=== PATIENT | male | born 1930 | race Caucasian/White ===

== ENCOUNTER 2016-10-05 09:13 | Inpatient (IN) | payer MEDICARE, OTHER ==
[~2016-10-05] VITALS: Ht 177.8 cm; Wt 83.2 kg
[2016-10-05] VITALS (8 sets, daily range): BP systolic 99–115; BP diastolic 57–67
[~2016-10-05 09:13] MED LIST: ADVA115A INH; ATOR40TA PO; CVS20TAB PO; DEXA4TA PO; DIGO0.12 PO; ELIQ2.5T PO; FERR325T PO; FISH100049 PO; FOSI1TAB8 PO; ISOS30TA4 PO; LEVA750T PO; LIDO5TD TD; LUTE10TA PO; METO25TAB PO; METO50TA2 PO; OMEP20CA3 PO; OXYC1TAB23 PO; PERCOCET PO; PLAV75TA38 PO; XANA0.5T PO
[2016-10-05 10:10] LABS: BASO % 0.2 % (0.0-1.0); EOS # 0.1 K/mm3 (0.0-0.50); EOS % 0.6 % (0.0-3.0); LARGE UNSTAINED CELL # 0.1 K/mm3 (0.0-0.4); LARGE UNSTAINED CELL % 0.4 % (0.0-4.0); LYMPH # 0.8 K/mm3 (1.5-4.5); LYMPH % 6.6 % (24.0-44.0); MEAN CORPUSCULAR HEMOGLOBIN 28.7 pg (27.0-33.0); MEAN CORPUSCULAR HGB CONC 31.2 g/dl (32.0-36.5); MONO # 0.2 K/mm3 (0.0-0.8); MONO % 1.3 % (0.0-5.0); NEUTROPHILS # 10.9 K/mm3 (1.8-7.7); NEUTROPHILS % 90.8 % (36.0-66.0); PLATELET COUNT, AUTOMATED 494 k/mm3 (150-450); RED CELL DISTRIBUTION WIDTH 16.2 % (11.5-14.5)
[2016-10-05 10:15] LABS: INR 1.22
[2016-10-05 10:32] LABS: ANION GAP 6 MEQ/L (8-16); BLOOD UREA NITROGEN 35 MG/DL (7-18); CALCIUM LEVEL 10.8 MG/DL (8.8-10.2); CARBON DIOXIDE LEVEL 34 MEQ/L (21-32); CHLORIDE LEVEL 100 MEQ/L (98-107); CREATININE FOR GFR 0.76 MG/DL (0.70-1.30); DIGOXIN LEVEL 0.7 NG/ML (0.5-2.0); GLOMERULAR FILTRATION RATE > 60.0 (>35); GLUCOSE, FASTING 148 MG/DL (83-110); POTASSIUM SERUM 3.8 MEQ/L (3.5-5.1); SODIUM LEVEL 140 MEQ/L (136-145)
[2016-10-05] MEDS ORDERED: ZOFR20TA PO (12:36)
[2016-10-05] MEDS ORDERED: PROC10TA PO (12:36)
[2016-10-05] MEDS ORDERED: HYDR-3713 PO (12:37)
[2016-10-05] MEDS ORDERED: CLON0.5T PO (12:38)
[2016-10-05] MEDS ORDERED: FERR325T PO (12:47)
[2016-10-05] MEDS ORDERED: LIDO5TD TD (12:47)
[2016-10-05] MEDS ORDERED: AMBI5TAB PO (12:48)
[2016-10-05] MEDS ORDERED: OMEP20CA3 PO (12:49)
[2016-10-05] MEDS ORDERED: DEXA5TA PO (12:49)
--- NOTE | 2016-10-05 12:58 | REP ---
LEFT SHOULDER: Three view of the left shoulder are performed. There is no acute fracture or dislocation. There is linear calcification along the superolateral humeral head which appears to represent tendinous calcification with possible calcific tendonitis. IMPRESSION: No acute fracture or dislocation. Possible calcific tendonitis. Signed by Danie Hull MD 10/05/2016 07:39 P
--- NOTE | 2016-10-05 13:24 | REP ---
PELVIS AND LEFT HIP: AP view of the pelvis and AP and frog-leg views of the left hip are performed. There is no evidence of acute fracture or dislocation. There are degenerative changes of the lower lumbar spine. Diffuse vascular calcifications are present. IMPRESSION: No evidence of acute fracture or dislocation. Signed by Danie Hull MD 10/05/2016 07:40 P
--- NOTE | 2016-10-05 13:32 | REP ---
AP SUPINE CHEST: 10/05/2016 COMPARISON: Two-view chest 08/31/2016, CT angiogram chest 09/01/2016. CLINICAL HISTORY: Cough. Supine chest shows lungs hypoinflated compared to the previous study with crowding of markings opacity suggesting complete consolidation and/or mass involving the left upper lobe. I do not see definite haziness to suggest layering effusion but smaller effusions could certainly be present. There is left atrial enlargement with elevation of the left mainstem bronchus. Heart size difficult to night baker in supine AP technique. Some underlying fibrosis is noted in both lungs. The airway is midline. Visualized bones grossly intact. No rita edema. IMPRESSION: 1. Opacity over the left upper lung zone representing consolidation and/or atelectasis and mass within this is certainly possible. 2. Left atrial enlargement. Overall heart size difficult to night baker. 3. Some underlying fibrosis. No rita edema. Signed by Isma Canada MD 10/05/2016 04:45 P
[2016-10-05] MEDS ORDERED: ONDANSETRON 4 MG TAB (S0181) PO PRN (15:15)
[2016-10-05] MEDS ORDERED: zolPIDEM TARTRATE 5 MG TAB PO PRN (15:15)
[2016-10-05] MEDS ORDERED: PROCHLORPERAZINE 5 MG TAB (S0183) PO PRN (15:15)
--- NOTE | 2016-10-05 16:52 | HPE ---
DATE OF ADMISSION: 10/05/2016 PRIMARY CARE PROVIDER: Dr. Bernstein ONCOLOGIST: Dr. 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 The patient was diagnosed with left nonsmall cell lung cancer in July 2016. The patient had a recent hospitalization on 08/21/2016 until 09/01/2016 for atrial fibrillation. Prior to admission, the patient was taking Plavix for GA status post cardiac stent. After the last hospitalization, the patient was placed on Eliquis for his atrial fibrillation. According to the patient, after discharge, he started having intermittent black stool and the patient started having decreased activity level and the patient started having worsening fatigue. The patient had been following with oncologist, Dr. London. The patient was recently started on chemotherapy. For the past week or so, the patient's stool has been persistently black and he noticed that his activity level showed significant decrease to the point that he can barely maintain a stable gait. Early in the morning, the patient tried to get to the bed and he fell and landed on the left hip and left shoulder. The patient denies any bleeding or loss or consciousness. The patient was brought to [facility] for further evaluation. During admission, the patient was found to have anemia with a hemoglobin of 9.6, hematocrit of 30.8, and 0.5 liter IV bolus was given. The hospitalist team was called for admission. ALLERGIES: ASPIRIN (anaphylaxis). HOME MEDICATIONS: - acetaminophen/hydrocodone 5/325 one tablet by mouth every six hours as needed - Eliquis 2.5 mg by mouth twice a day - atorvastatin 40 mg by mouth at bedtime - clonazepam 0.5 mg by mouth twice a day as needed for anxiety - Plavix 75 mg by mouth daily - dexamethasone 0.5 mg by mouth daily - digoxin 0.125 mg by mouth daily - ferrous sulfate 325 mg by mouth daily - Lidoderm patch to the left hip daily - metoprolol tartrate 50 mg by mouth twice a day - omeprazole 20 mg by mouth daily - Zofran 4 mg by mouth every six hours as needed for nausea - prochlorperazine 10 mg by mouth every eight hours as needed for nausea - Advair Diskus two puff inhalation twice a day - Ambien 10 mg by mouth at bedtime as needed for sleep PAST MEDICAL HISTORY: 1. 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 Diagnosed in July 2016. Started first chemotherapy on 10/03/2016. 2. History of myocardial infarction (GA) status post coronary artery stents on Plavix. 3. Gastroesophageal reflux disease. 4. Hypercholesterolemia. 5. Hypertension. 6. Atrial fibrillation. PAST SURGICAL HISTORY: Coronary artery stent placement. SOCIAL HISTORY: The patient used to smoke several packs daily. The patient quite 16 years ago. Denies alcohol use. Denies recreational drug use. The patient is a DO NOT RESUSCITATE (DNR). REVIEW OF SYSTEMS: GENERAL: No fever. No chills. The patient does complain about significant weight loss. The patient has been having very poor oral intake. HEENT: No vision change. No auditory changes. CARDIOVASCULAR: Positive atrial fibrillation since August 2016. The patient has a history of myocardial infarction (GA) 16 years ago. Denies any chest pain. RESPIRATORY: Denies any shortness of breath, cough, or sputum production. GASTROINTESTINAL: History of gastroesophageal reflux disease. No nausea. No vomiting. No abdominal pain. MUSCULOSKELETAL: Hip pain. No muscle ache. NEUROLOGICAL: Denies any new numbness or tingling. OBJECTIVE: VITAL SIGNS: Blood pressure is 105/53, pulse is 90, respiratory rate 18, temperature is 98.3, pulse oximetry is 99% with three liters nasal cannula. Body weight is 85.73 kg. Body height is 77.8 cm. GENERAL: Fatigued, pale but able to answer questions and follow commands. The patient is alert and oriented times three. HEENT: Normocephalic, atraumatic. Extraocular motor grossly intact. CARDIOVASCULAR: Very distant heart sounds. Positive systolic murmur. Irregularly irregular. Heart rate around 90. RESPIRATORY: Decreased breath sounds. However, no wheezes and no crackles appreciated. ABDOMEN: Soft, nontender, nondistended. Bowel sounds present. No rebound. No guarding. EXTREMITIES: No lower extremity edema. No sign of cyanosis. NEUROLOGICAL: Sensation to fine touch grossly intact. Muscle strength 5/5. LABORATORY DATA: WBC is 12, hemoglobin is 9.6, hematocrit 30.8, platelet count is 494. Sodium is 140, potassium is 3.8, chloride is 100, carbon dioxide 34, BUN 35, creatinine 0.76, GFR greater than 60, fasting glucose 148, calcium is 10.8, digoxin level is 0.7, PT is 15.5, INR is 1.22. IMAGING STUDIES: Left shoulder x-ray showed no acute fracture or dislocation. Possible calcified tendonitis. The left hip x-ray showed no evidence of acute fracture or dislocation. Chest x-ray showed opacity over the left upper lung zone representing a consolidation and/or atelectasis and a mass within. Left atrial enlargement. Underlying fibrosis. No rita edema. ASSESSMENT AND PLAN: 1. Upper gastrointestinal (GI) bleed. The patient will be admitted to the progressive care unit (PCU) under inpatient status. The patient will be nothing by mouth and the patient will have IV fluid. General surgeon, Dr. Foss, is consulted. The patient was started on Protonix 40 mg by mouth twice a day and the patient was started on Carafate. The patient has never had upper endoscopy performed and the patient had a colonoscopy more than 10 years ago. We will discontinue the Eliquis and Plavix due to the acute bleeding. 2. Symptomatic anemia. Two units of packed red blood cells was ordered in the emergency room. The patient is actually in the process of receiving first pack of red blood cell transfusion during the encounter. We will followup the hemoglobin and hematocrit every six hours. The patient will be on fall precautions. 3. Stage IV nonsmall cell lung cancer with metastasis to the adrenal gland and the brain. The patient is followed by Dr. London. He just started his first dose of chemotherapy on 10/03/2016. The patient denies any acute reaction to the chemotherapy. The patient and family member understand his prognosis is poor. However, he still wants to have a fighting chance and that is why he is going through the chemotherapy. 4. Hypercholesterolemia, on atorvastatin. 5. History of myocardial infarction (GA) with stent placement. The patient is allergic to aspirin with adverse effect of anaphylaxis. The patient has been taking Plavix. Due to acute GI bleeding, Plavix will be discontinued. 6. Atrial fibrillation. The patient has been taking metoprolol tartrate and Eliquis. Eliquis will be on hold due to the acute bleeding. The patient is also taking digoxin. 7. Hypertension. The patient's blood pressure is currently in the satisfactory range. The patient is on metoprolol tartrate. 8. Deep vein thrombosis (DVT) prophylaxis. Due to acute GI bleeding, the patient will be on thromboembolic-deterrent stockings (TEDS) and sequential compression device.
--- NOTE | 2016-10-05 18:29 | EDDOCDS ---
Physician Documentation [facility] Name: Robert Horton Age: 86 yrs Sex: Male : 1930 Arrival Date: 10/05/2016 Time: 09:13 Bed 21 Private MD: Disposition: 10/05 11:52 Critical Care:. pc Disposition: 10/05/16 13:11 Hospitalization ordered by Deann Gorman for Inpatient Admission. Preliminary diagnosis are Gastrointestinal hemorrhage, unspecified - upper, Anemia, unspecified, Chronic atrial fibrillation, Malignant neoplasm of bronchus and lung, Fall on same level, unspecified. - Bed requested for PCU. - Status is Inpatient Admission. dsf - Condition is Stable. - Problem is new. - Symptoms have improved. HPI: 10:10 This 86 yrs old Male presents to ER via Ambulance with complaints of General pc Weakness. 10:10 The history is obtained from the patient, the patient's family/friend. He has been pc getting progressively weak for 4 weeks, worse since his first chemotherapy 2 days ago. His legs gave out this morning while trying to get to the bathroom to urinate and fell to the floor. He did not sustain any injuries. He was recently admitted to [facility] for new onset AFib and was started on Eliquis. His EMR shows his hemoglobin dropped from 12.5 to 8.5 over the 11 day admission. His BUN was 25 on admission and was 12 on discharge. The patient has not experienced similar symptoms in the past. The patient has been recently seen by Dr. London. Historical: - Allergies: Aspirin (Anaphylaxis); - Home Meds: 1. clonazepam 0.5 mg Oral tab 1 tab 2 times per day (Last dose: 10/04/2016) 2. digoxin 125 mcg Oral tab 1 tab once daily (Last dose: 10/04/2016) 3. Eliquis 5 mg oral tab 1 tab daily (Last dose: 10/04/2016) 4. ondansetron HCl 4 mg Oral tab 4 mg every 6 hours 5. Compazine 10 mg Oral tab 1 tab every 8 hours (Last dose: Unknown) 6. ferrous sulfate 325 mg (65 mg iron) Oral TbEC 325 mg twice a day (Last dose: 10/04/2016) 7. metoprolol tartrate 50 mg Oral tab 2 times per day (Last dose: 10/04/2016) 8. dexamethasone 0.5 mg Oral tab 1 tab once daily (Last dose: 10/04/2016) 9. Ambien 10 mg Oral tab 1 tab nightly (Last dose: 10/04/2016) 10. Plavix 75 mg Oral tab 1 tab once daily (Last dose: 10/04/2016) 11. hydrocodone-acetaminophen 5-325 mg Oral tab 1 tab every 6 hours (Last dose: Unknown) - PMHx: Cancer, Lung - Left; GERD; Hypercholesterolemia; Hypertension; brain cancer; Atrial Fib; - PSHx: Stents, Coronary; - The history from nurses notes was reviewed: and I agree with what is documented. - Social history: Smoking status: Patient states was never smoker of tobacco. No barriers to communication noted, The patient speaks fluent Turkmen. - : The pt / caregiver states he / she is on anticoagulants: Eliquis Home medication list is obtained from family members. - Exposure Risk Screening:: None identified. - Immunization history:: All immunizations up-to-date. - Family history: Not pertinent. - Social history:: the patient is a former smoker, the patient does not drink alcohol. ROS: 10:10 All systems are negative except as listed. pc Exam: 10:10 General Appearance: no acute distress, alert. pc 10:10 EENT: ears, nose and throat normal, pharynx normal, mucous membranes moist no apparent trauma, pale conjunctiva. 10:10 Neck: The exam reveals no acute abnormalities. ROM is normal and painless. No nuchal rigidity is noted.. 10:10 Respiratory: no respiratory distress, Breath sounds: rhonchi, in the right posterior middle lobe. 10:10 CVS: regular pulse rate, normal S1 and S2, no murmurs, strong peripheral pulses, irregularly irregular 10:10 Abdomen: soft, non-tender, no organomegaly, normal bowel sounds, Rectal exam: stool is guaiac positive, fecal impaction is noted. 10:10 Back: normal inspection. 10:10 Skin: warm, dry, the skin appears pale, diffusely. 10:10 Extremities: The extremities have a grossly normal appearance, are non-tender. 10:10 Neuro: oriented x 3, cranial nerves normal as tested, no motor deficits, no sensory deficits. 10:10 Psych: normal mood. Vital Signs: 09:30 BP 115 / 60 (auto/); dsf 09:35 BP 115 / 60; Pulse 88; Resp 18; Temp 98.3; Pulse Ox 100% on 3 lpm NC; Weight 85.73 kg / cmb 189 lbs (R); Height 5 ft. 10 in. (177.80 cm) (R); Pain 0/10; 09:35 Pulse 94 MON; Pulse Ox 100% ; dsf 11:52 BP 105 / 53 (auto/); dsf 11:52 Pulse 90 MON; Pulse Ox 99% ; dsf 12:31 BP 110 / 59; Pulse 109; Resp 18; Temp 98.2; Pulse Ox 98% on 3 lpm NC; Pain 0/10; cmb 09:35 Body Mass Index 27.12 (85.73 kg, 177.80 cm) cmb MDM: 10:01 IV Saline Lock ordered. pc 10:01 Duplicate Maker/Pulse Ox/q 30 min VS ordered. pc 10:02 Type & Screen Ordered. EDMS 10:02 ECG WITH READING ER PHYS+CARDIAG ordered. EDMS 10:02 CBC with Diff Ordered. EDMS 10:02 MED Profile Ordered. EDMS 10:02 Pt & Aptt Ordered. EDMS 10:02 Digoxin Level Ordered. EDMS 10:03 NOTHING BY MOUTH+DIET ordered. EDMS 10:10 Differential Diagnosis: fall without injury; general weakness with profound anemia; UGI pc bleed on anticoagulants; lung Ca. Plan: labs, EKG. 10:15 Test interpretation: EKG. pc 10:49 CBC with Diff Reviewed. pc 10:49 MED Profile Reviewed. pc 10:49 Pt & Aptt Reviewed. pc 10:49 Type & Screen Reviewed. pc 10:49 Digoxin Level Reviewed. pc 11:21 Type & Screen Reviewed. pc 11:37 BED REQUEST+ADM ordered. EDMS 11:50 NS 0.9% 500 ml IV at bolus once ordered. pc 11:51 Transfuse PRBC's 2 units, ensure PRBCs ordered in lab ordered. pc 11:52 Data reviewed: old medical records, vital signs, nurses notes, EKG(s), lab test pc results, all radiology studies and available results. Test interpretation: LAB - all labs as ordered have been reviewed, interpreted and considered in the overall management of the clinical presentation;. The patient has been re-examined and re-evaluated. The patient's symptoms have mildly improved after treatment. ED course: He is now complaining of left shoulder and hip[ pain from his fall. Exam is unremarkable . 11:52 Physician consultation: Dr. Deann Gorman regarding admission. Disposition: The historical pc points, examination findings, and any diagnostic results supporting the provided diagnosis, were discussed with the patient or legal guardian. The need for further work-up and/or treatment in the hospital was explained. 11:53 Chest, 1 View Ordered. EDMS 11:53 Shoulder, Complete Ordered. EDMS 11:53 Type and Cross, Packed Cells Ordered. EDMS 11:54 Hip,AP,LAT to include Pelvis Ordered. EDMS 12:30 Admission / Observation Status ordered. EDMS 12:30 NPO DIET ordered. EDMS 13:08 Financial registration complete. mm15 14:18 [facility] Payment Agreement was scanned into [employer] and attached to record. mm15 15:05 HEMOGLOBIN & HEMATOCRIT Ordered. EDMS EC:15 Rate is 94 beats/min. Rhythm is irregularly irregular, A fib. QRS Booker is Normal. QRS pc interval is normal. QT interval is normal. Q waves are Old in leads III, aVF. T waves are Inverted in lead aVF. ST Segment is depressed in leads II, aVL, aVF, V3, <1mm. Clinical impression: Nonspecific ST-T changes, Atrial Fibrillation w/o RVR, and Inferior SC - age indeterminate. Administered Medications: 11:53 Drug: NS 0.9% 500 ml [sodium chloride 0.9 % injection solution] Route: IV; Rate: bolus; dsf Site: right antecubital; Critical Care Time: 11:52 Critical care time: Bedside Care: 35 minutes, Consultation: 10 minutes, Family pc Intervention: 15 minutes. Total time: 60 minutes Signatures: Dispatcher [employer] EDDE Kervin Grewal MD MD pc Fuller, Desiree, RN RN dsf Jim Manjarrez [id number] Yang De La Garza RN RN [facility] The chart was reviewed and I authenticate all verbal orders and agree with the evaluation and treatment provided.Corrections: (The following items were deleted from the chart) 12:07 11:53 TYPE & SCREEN ordered. EDMS EDMS 16:01 15:35 PACKED CELLS ordered. EDMS EDMS 16:01 15:35 TYPE & SCREEN ordered. EDMS EDMS Attachments: 14:18 [facility] Payment Agreement [id number] MTDD
--- NOTE | 2016-10-05 18:29 | EDDOCDS ---
Nurse's Notes [facility] Name: Robert Horton Age: 86 yrs Sex: Male : 1930 Arrival Date: 10/05/2016 Time: 09:13 Bed 21 Private MD: Diagnosis: Gastrointestinal hemorrhage, unspecified-upper;Anemia, unspecified;Chronic atrial fibrillation;Malignant neoplasm of bronchus and lung;Fall on same level, unspecified Presentation: 10/05 09:16 Presenting complaint: Presenting complaint: EMS states: pt reports his legs were weak dsf when trying to get out of bed this morning and he fell. pt denies LOC. pt has a HX of brain cancer and did receive chemo on Monday, FSBS 187. PT denies pain at this time. 09:19 Suicide/Homicide risk assessment- the patient denies having any suicidal and/or dsf homicidal ideations and does not present with any other emotional, behavioral or mental health complaints. 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 Transition of care: patient was not received from another setting of care. 09:19 Method Of Arrival: Ambulance dsf 09:37 Adult Sepsis Screening: The patient does not have new or worsening altered mentation. dsf Patient's respiratory rate is less than 22. Systolic blood pressure is greater than 100. Patient has a qSOFA score of 0- Negative Sepsis Screen. 09:37 Acuity: JOSE Level 3 dsf Triage Assessment: 09:23 General: Appears ill, Behavior is cooperative. Pain: Denies pain. The patient is dsf triaged at the bedside. See Assessment in Nurses Notes section of ED record. Neurological: Level of Consciousness is awake, alert, Oriented to person, place, time, Reports weakness legs feel weak for the past 1-2 weeks . Cardiovascular: Capillary refill < 3 seconds Heart tones S1 S2 present. Respiratory: Airway is patent Respiratory effort is even, unlabored, Respiratory pattern is regular, symmetrical, Breath sounds are diminished in left upper lobe and left lower lobe Reports shortness of breath since for the past week cough that is productive, since 1 week ago. GI: Abdomen is non- distended Bowel sounds present X 4 quads. Abd is soft and non tender X 4 quads. Derm: Skin is dry, Skin is pale. Musculoskeletal: No deficits noted. Historical: - Allergies: Aspirin (Anaphylaxis); - Home Meds: 1. clonazepam 0.5 mg Oral tab 1 tab 2 times per day (Last dose: 10/04/2016) 2. digoxin 125 mcg Oral tab 1 tab once daily (Last dose: 10/04/2016) 3. Eliquis 5 mg oral tab 1 tab daily (Last dose: 10/04/2016) 4. ondansetron HCl 4 mg Oral tab 4 mg every 6 hours 5. Compazine 10 mg Oral tab 1 tab every 8 hours (Last dose: Unknown) 6. ferrous sulfate 325 mg (65 mg iron) Oral TbEC 325 mg twice a day (Last dose: 10/04/2016) 7. metoprolol tartrate 50 mg Oral tab 2 times per day (Last dose: 10/04/2016) 8. dexamethasone 0.5 mg Oral tab 1 tab once daily (Last dose: 10/04/2016) 9. Ambien 10 mg Oral tab 1 tab nightly (Last dose: 10/04/2016) 10. Plavix 75 mg Oral tab 1 tab once daily (Last dose: 10/04/2016) 11. hydrocodone-acetaminophen 5-325 mg Oral tab 1 tab every 6 hours (Last dose: Unknown) - PMHx: Cancer, Lung - Left; GERD; Hypercholesterolemia; Hypertension; brain cancer; Atrial Fib; - PSHx: Stents, Coronary; - The history from nurses notes was reviewed: and I agree with what is documented. - Social history: Smoking status: Patient states was never smoker of tobacco. No barriers to communication noted, The patient speaks fluent Macedonian. - : The pt / caregiver states he / she is on anticoagulants: Eliquis Home medication list is obtained from family members. - Exposure Risk Screening:: None identified. - Immunization history:: All immunizations up-to-date. - Family history: Not pertinent. - Social history:: the patient is a former smoker, the patient does not drink alcohol. Assessment: 09:23 General: see triage assessment . dsf 10:23 Adult Sepsis Screening: The patient does not have new or worsening altered mentation. dsf Patient's respiratory rate is less than 22. Systolic blood pressure is greater than 100. Patient has a qSOFA score of 0- Negative Sepsis Screen. General: Appears in no apparent distress, Behavior is appropriate for age, cooperative. Pain: Denies pain. Neurological: Level of Consciousness is awake, alert. Cardiovascular: Capillary refill < 3 seconds Heart tones S1 S2 present Rhythm is atrial fibrillation with no ectopy. Respiratory: Airway is patent Respiratory effort is even, unlabored, Respiratory pattern is regular, symmetrical, Breath sounds are diminished in left upper lobe and left lower lobe. Derm: Skin is dry, Skin is pale, Skin temperature is warm. 11:23 Adult Sepsis Screening: The patient does not have new or worsening altered mentation. dsf Patient's respiratory rate is less than 22. Systolic blood pressure is greater than 100. Patient has a qSOFA score of 0- Negative Sepsis Screen. General: Appears in no apparent distress, to be sleeping. Respiratory: Airway is patent Respiratory effort is even, unlabored, Respiratory pattern is regular, symmetrical. Derm: Skin is dry, Skin is pale, Skin temperature is warm. 12:34 General: Dr. gorman in examining patient . dsf 13:34 General: Appears in no apparent distress, to be sleeping. Cardiovascular: Capillary dsf refill < 3 seconds Heart tones S1 S2 present Rhythm is atrial fibrillation with no ectopy. Respiratory: Airway is patent Respiratory effort is even, unlabored, Respiratory pattern is regular, symmetrical, Breath sounds are diminished in left upper lobe and left lower lobe. GI: Abdomen is non- distended Bowel sounds present X 4 quads. Abd is soft and non tender X 4 quads. Derm: Skin is dry, Skin is pale, Skin temperature is warm. 13:50 General: Dr. Foss in examining patient . dsf Vital Signs: 09:30 BP 115 / 60 (auto/); dsf 09:35 BP 115 / 60; Pulse 88; Resp 18; Temp 98.3; Pulse Ox 100% on 3 lpm NC; Weight 85.73 kg cmb (R); Height 5 ft. 10 in. (177.80 cm) (R); Pain 0/10; 09:35 Pulse 94 MON; Pulse Ox 100% ; dsf 11:52 BP 105 / 53 (auto/); dsf 11:52 Pulse 90 MON; Pulse Ox 99% ; dsf 12:31 BP 110 / 59; Pulse 109; Resp 18; Temp 98.2; Pulse Ox 98% on 3 lpm NC; Pain 0/10; cmb 09:35 Body Mass Index 27.12 (85.73 kg, 177.80 cm) cmb Vitals: 09:23 Log In Time N/A - ambulance arrival. dsf ED Course: 09:15 Patient visited by Evonne Russ. cmb 09:15 Patient moved to Waiting cmb 09:16 Patient moved to 15 cmb 09:27 Kervin Grewal MD is Attending Physician. pc 09:36 Patient visited by Evonne Russ. cmb 09:36 Pt greeted and oriented to ED. Patient advised of names of staff involved in care, cmb location of call raza, wait times and NPO status. Patient has correct armband on for positive identification. Bed in low position. Call light in reach. Side rails up X2. Cleaned of incontinence. nurse receptionist on. Pulse ox on. NIBP on. 09:37 Triage Initiated dsf 09:57 Patient visited by Kervin Grewal MD. pc 10:02 Inserted saline lock: 20 gauge in right antecubital area The patient tolerated the dsf procedure well. 10:04 Digoxin Level Sent. dsf 10:04 Type & Screen Sent. dsf 10:04 Pt & Aptt Sent. dsf 10:04 MED Profile Sent. dsf 10:04 CBC with Diff Sent. dsf 10:08 EKG done. (by ED staff). Reviewed by Kervin Grewal MD. nb2 10:15 Patient visited by Mariah Dewey. nb2 11:16 Patient visited by Evonne Russ. cmb 11:54 Type and Cross, Packed Cells Sent. dsf 11:55 Patient visited by Gabby Tamez,MAHOGANY. dsf 12:03 Deann Gorman communications strategist. ys2 12:10 Patient moved to Radiology dsf 12:31 Patient visited by Evonne Russ. cmb 12:31 Patient moved to 15 cmb 12:32 Patient visited by Evonne Russ. cmb 12:59 Blood products: PRBCs X 1 unit given. See transfusion record Unit # [id number]. jc4 13:10 Deann Gorman is Hospitalizing Provider. pc 13:21 Shoulder, Complete Returned. EDMS 13:52 Patient visited by Gabby Tamez,MAHOGANY. dsf 14:10 Patient moved to 21 dsf 14:18 [facility] [place] Agreement was scanned into [employer] and attached to record. mm15 14:18 Hip,AP,LAT to include Pelvis Returned. EDMS 14:18 Chest, 1 View Returned. EDMS 14:19 Patient visited by Evonne Russ. cmb Administered Medications: 11:53 Drug: NS 0.9% 500 ml [sodium chloride 0.9 % injection solution] Route: IV; Rate: bolus; dsf Site: right antecubital; Order Results: Lab Order: CBC with Diff; SPEC'M 10/05/16 09:43 Test: WHITE BLOOD COUNT; Value: 12.0; Range: 4.0-10.0; Abnormal: Above high normal; Units: K/mm3; Status: F Test: RED BLOOD COUNT; Value: 3.35; Range: 4.30-6.10; Abnormal: Below low normal; Units: M/mm3; Status: F Test: HEMOGLOBIN; Value: 9.6; Range: 14.0-18.0; Abnormal: Below low normal; Units: g/dl; Status: F Test: HEMATOCRIT; Value: 30.8; Range: 42.0-52.0; Abnormal: Below low normal; Units: %; Status: F Test: MEAN CORPUSCULAR VOLUME; Value: 92.0; Range: 80.0-96.0; Units: fl; Status: F Test: MEAN CORPUSCULAR HEMOGLOBIN; Value: 28.7; Range: 27.0-33.0; Units: pg; Status: F Test: MEAN CORPUSCULAR HGB CONC; Value: 31.2; Range: 32.0-36.5; Abnormal: Below low normal; Units: g/dl; Status: F Test: RED CELL DISTRIBUTION WIDTH; Value: 16.2; Range: 11.5-14.5; Abnormal: Above high normal; Units: %; Status: F Test: PLATELET COUNT, AUTOMATED; Value: 494; Range: 150-450; Abnormal: Above high normal; Units: k/mm3; Status: F Test: NEUTROPHILS %; Value: 90.8; Range: 36.0-66.0; Abnormal: Above high normal; Units: %; Status: F Test: LYMPH %; Value: 6.6; Range: 24.0-44.0; Abnormal: Below low normal; Units: %; Status: F Test: MONO %; Value: 1.3; Range: 0.0-5.0; Units: %; Status: F Test: EOS %; Value: 0.6; Range: 0.0-3.0; Units: %; Status: F Test: BASO %; Value: 0.2; Range: 0.0-1.0; Units: %; Status: F Test: LARGE UNSTAINED CELL %; Value: 0.4; Range: 0.0-4.0; Units: %; Status: F Test: NEUTROPHILS #; Value: 10.9; Range: 1.8-7.7; Abnormal: Above high normal; Units: K/mm3; Status: F Test: LYMPH #; Value: 0.8; Range: 1.5-4.5; Abnormal: Below low normal; Units: K/mm3; Status: F Test: MONO #; Value: 0.2; Range: 0.0-0.8; Units: K/mm3; Status: F Test: EOS #; Value: 0.1; Range: 0.0-0.50; Units: K/mm3; Status: F Test: BASO #; Value: 0.0; Range: 0.0-0.2; Units: K/mm3; Status: F Test: LARGE UNSTAINED CELL #; Value: 0.1; Range: 0.0-0.4; Units: K/mm3; Status: F Lab Order: [facility] Profile; [facility] 10/05/16 09:43 Test: GLUCOSE, FASTING; Value: 148; Range: 83-110; Abnormal: Above high normal; Units: MG/DL; Status: F Test: BLOOD UREA NITROGEN; Value: 35; Range: 7-18; Abnormal: Above high normal; Units: MG/DL; Status: F Test: CREATININE FOR GFR; Value: 0.76; Range: 0.70-1.30; Units: MG/DL; Status: F Test: GLOMERULAR FILTRATION RATE; Value: > 60.0; Range: >35; Status: F Test: SODIUM LEVEL; Value: 140; Range: 136-145; Units: MEQ/L; Status: F Test: POTASSIUM SERUM; Value: 3.8; Range: 3.5-5.1; Units: MEQ/L; Status: F Test: CHLORIDE LEVEL; Value: 100; Range: 98-107; Units: MEQ/L; Status: F Test: CARBON DIOXIDE LEVEL; Value: 34; Range: 21-32; Abnormal: Above high normal; Units: MEQ/L; Status: F Test: ANION GAP; Value: 6; Range: 8-16; Abnormal: Below low normal; Units: MEQ/L; Status: F Test: CALCIUM LEVEL; Value: 10.8; Range: 8.8-10.2; Abnormal: Above high normal; Units: MG/DL; Status: F Test Note: ; Units are mL/min/1.73 m2 Chronic Kidney Disease Staging per NKF: Stage I & II GFR >=60 Normal to Mildly Decreased Stage III GFR 30-59 Moderately Decreased Stage IV GFR 15-29 Severely Decreased Stage V GFR <15 Very Little GFR Left ESRD GFR <15 on TAR CHASER Lab Order: Pt & Aptt; 10/05/16 09:43 Test: PROTHROMBIN TIME; Value: 15.5; Range: 12.3-14.5; Abnormal: Above high normal; Units: SECONDS; Status: F Test: INR; Value: 1.22; Status: F Test: PARTIAL THROMBOPLASTIN TIME; Value: 31.5; Range: 26.6-37.1; Units: SECONDS; Status: F Test Note: ; THERAPUTIC HUMAN INR VALUES INDICATIONS NORMAL RANGES PROPHYLAXIS/TREATMENT OF: VENOUS THROMBOSIS 2.0-3.0 PULMONARY EMBOLISM 2.0-3.0 PREVENTION OF SYSTEMIC EMBOLISM FROM: TISSUE HEART VALVES 2.0-3.0 ACUTE MYOCARDIAL INFARCTION 2.0-3.0 VALVULAR HEART DISEASE 2.0-3.0 ATRIAL FIBRILLATION 2.0-3.0 MECHANICAL VALVES(HIGH RISK) 2.5-3.5 RECURRENT MYOCARDIAL INFARCTION 2.5-3.5 Lab Order: Type & Screen; 10/05/16 09:43 Test: BLOOD TYPE; Value: O POS; Status: F Test: AB SCREEN (INDIRECT ANTHONY)GEL; Value: NEGATIVE; Status: F Lab Order: Digoxin Level; 10/05/16 09:43 Test: DIGOXIN LEVEL; Value: 0.7; Range: 0.5-2.0; Units: NG/ML; Status: F Radiology Order: Chest, 1 View Test: Chest, 1 View REASON FOR EXAMINATION: Cough; AP SUPINE CHEST: 10/05/2016; ; COMPARISON: Two-view chest 08/31/2016, CT angiogram chest 09/01/2016.; ; CLINICAL HISTORY: Cough.; ; Supine chest shows lungs hypoinflated compared to the previous study with; crowding of markings opacity suggesting complete consolidation and/or mass; involving the left upper lobe. I do not see definite haziness to suggest; layering effusion but smaller effusions could certainly be present. There is; left atrial enlargement with elevation of the left mainstem bronchus. Heart size; difficult to airborne and air delivery specialist in supine AP technique. Some underlying fibrosis is noted in; both lungs. The airway is midline. Visualized bones grossly intact. No rita; edema.; ; IMPRESSION:; ; 1. Opacity over the left upper lung zone representing consolidation and/or; atelectasis and mass within this is certainly possible.; ; 2. Left atrial enlargement. Overall heart size difficult to airborne and air delivery specialist.; ; 3. Some underlying fibrosis. No rita edema.; ; ; Signed by; Isma Canada MD 10/05/2016 04:45 P; Radiology Order: Shoulder, Complete Test: Shoulder, Complete REASON FOR EXAMINATION: Trauma; ; LEFT SHOULDER:; ; Three view of the left shoulder are performed. There is no acute fracture or; dislocation. There is linear calcification along the superolateral humeral head; which appears to represent tendinous calcification with possible calcific; tendonitis.; ; IMPRESSION:; No acute fracture or dislocation. Possible calcific tendonitis.; ; ; ; Unreviewed; Radiology Order: Hip,AP,LAT to include Pelvis Test: Hip,AP,LAT to include Pelvis REASON FOR EXAMINATION: Trauma; ; PELVIS AND LEFT HIP:; ; AP view of the pelvis and AP and frog-leg views of the left hip are performed.; There is no evidence of acute fracture or dislocation. There are degenerative; changes of the lower lumbar spine. Diffuse vascular calcifications are present.; ; ; IMPRESSION:; No evidence of acute fracture or dislocation.; ; ; ; Unreviewed; Outcome: 13:11 Decision to Hospitalize by Provider. pc 14:10 Admission hand-off: Report called to Mira VIDES. dsf 18:28 Patient left the ED. dsf Signatures: Dispatcher [employer] EDMS Kervin Grewal MD MD pc Castle, Jennifer RN RN jc4 Gabby Tmaez RN RN dsEvonne Raymond cmb Jim Manjarrez mm15 Deann Gorman ys2 Mariah Dewey nb2 Corrections: (The following items were deleted from the chart) 09: 09:16 Presenting complaint: dsf dsf 09:28 09:16 Presenting complaint: EMS states: pt reports his legs were weak when trying to dsf get out of bed this morning and he fell. pt denies LOC. pt has a HX of brain cancer and did receive chemo on Monday, FSBS 187. PT denies pain at this time Presenting complaint: EMS states: pt reports his legs were weak when trying to get out of bed this morning and he fell. pt denies LOC. pt has a HX of brain cancer and did receive chemo on Monday, FSBS 187. PT denies pain at this time dsf 13:52 10:23 Cardiovascular: Capillary refill < 3 seconds dsf dsf 13:52 10:23 Respiratory: Airway is patent Respiratory effort is even, unlabored, Respiratory dsf pattern is regular, symmetrical, dsf MTDD
[2016-10-05] MEDS: NS 1,000 ML IV SCH (19:39)
[2016-10-05] MEDS: DIGOXIN 0.125 MG TAB PO SCH (19:39)
[2016-10-05] MEDS: FERROUS SULFATE 325MG TAB PO SCH (19:40)
[2016-10-05] MEDS: LIDOCAINE 5% (LIDODERM) PATCH TD SCH (19:42)
[2016-10-05] MEDS: **NOTE PATIENT COMMENT** MISC XX SCH (20:38)
[2016-10-05] MEDS: ATORVASTATIN 20 MG TAB PO SCH (20:45)
[2016-10-05] MEDS: SUCRALFATE SUSP 1GM/10ML UD PO SCH (20:45)
[2016-10-05] MEDS: PANTOPRAZOLE 40MG TAB (PROTONIX) PO SCH (20:45)
[2016-10-05] MEDS: OMEPRAZOLE 20 MG CAP PO SCH (20:45)
[2016-10-05] MEDS: METOPROLOL TART 50 MG TAB PO SCH (20:46)
[2016-10-05] MEDS: ADVAIR HFA 115/21 INHALER INH SCH (21:35)
[2016-10-05] MEDS: clonazePAM 0.5 MG TAB PO PRN (23:33)
[2016-10-06] MEDS: NS 1,000 ML IV SCH ×3 (00:55→22:36)
[2016-10-06 03:23] VITALS: BP 115/58
[2016-10-06] MEDS: SUCRALFATE SUSP 1GM/10ML UD PO SCH ×3 (04:31→22:33)
[2016-10-06 05:59] LABS: ANION GAP 6 MEQ/L (8-16); BLOOD UREA NITROGEN 30 MG/DL (7-18); CALCIUM LEVEL 9.7 MG/DL (8.8-10.2); CARBON DIOXIDE LEVEL 33 MEQ/L (21-32); CHLORIDE LEVEL 102 MEQ/L (98-107); CREATININE FOR GFR 0.53 MG/DL (0.70-1.30); GLOMERULAR FILTRATION RATE > 60.0 (>35); GLUCOSE, FASTING 132 MG/DL (83-110); POTASSIUM SERUM 3.5 MEQ/L (3.5-5.1); SODIUM LEVEL 141 MEQ/L (136-145)
[2016-10-06 06:00] LABS: MEAN CORPUSCULAR HEMOGLOBIN 28.9 pg (27.0-33.0); MEAN CORPUSCULAR HGB CONC 31.5 g/dl (32.0-36.5); MEAN CORPUSCULAR VOLUME 91.8 fl (80.0-96.0); RED CELL DISTRIBUTION WIDTH 15.8 % (11.5-14.5); WHITE BLOOD COUNT 12.2 K/mm3 (4.0-10.0)
--- NOTE | 2016-10-06 07:13 | CR ---
DATE OF CONSULTATION: 10/05/2016 REASON FOR CONSULT: Gastrointestinal (GI) bleed. HISTORY OF PRESENT ILLNESS: The patient is an 86-year-old male with a history of Stage IV lung cancer. He was recently diagnosed due to metastases to the brain. He has undergone radiation to the brain mets and also started chemotherapy this past Monday for the left lung. For the past two weeks, he has had black stools and he has been getting progressively weaker. Since Monday, this has been getting even worse to the point where he was having trouble standing and moving. Therefore, he was brought into the emergency room today. No signs of visible bleeding, however, he does have the black stools. He is on Eliquis at home and Plavix. He is on omeprazole for GI prophylaxis at home. Last colonoscopy was well over ten years ago. No history of bright red blood in his stools. No problems with melanotic stools prior to two weeks ago. The patient is not very verbal at this point. He is alert and oriented times three, but he is very quiet and weak, so the son and son-in-law did most of the talking for him. However, they say that there is no known prognosis for him at this time. He has not been given anything like that from his oncologist. Other than being weak and having the black stools, there is no other complaints at home. PAST MEDICAL HISTORY: 1. Osteoarthritis. 2. Anemia. 3. 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 4. Coronary artery disease. 5. Peripheral vascular disease. 6. Gastroesophageal reflux disease. 7. Hypertension. 8. Dyslipidemia. PAST SURGICAL HISTORY: Stents, both coronary and femoral stents. ALLERGIES: ASPIRIN. HOME MEDICATIONS: - metoprolol - fosinopril - atorvastatin - isosorbide mononitrate - Plavix - omeprazole - Eliquis FAMILY HISTORY: Noncontributory. REVIEW OF SYSTEMS: Pertinent positives and negatives as stated in history of present illness. SOCIAL HISTORY: Denies any drug, alcohol or tobacco abuse. PHYSICAL EXAMINATION: GENERAL: Patient is alert and oriented times three. VITAL SIGNS: Stable. Afebrile. HEENT: Pupils equally round and react to light and accommodation. HEART: S1, S2. Regular rate and rhythm. LUNGS: Clear to auscultation bilaterally. ABDOMEN: Soft. Nontender. Nondistended. Bowel sounds positive. EXTREMITIES: No clubbing, cyanosis or edema. LABS: White count 12, hemoglobin 9.6, platelets 494. Sodium 140, potassium 3.8, creatinine 0.76. IMAGING: Chest x-ray shows opacity over the left upper lung zone representing consolidation and/or atelectasis and mass. Left atrial enlargement. Some underlying fibrosis. No signs of rita edema. ASSESSMENT AND PLAN: Patient is an 86-year-old male currently with Stage IV lung cancer with poor overall prognosis who had melanotic stools for the past two weeks. This is acute blood loss anemia from GI source. This is likely secondary to an upper rather than a lower GI bleed. I discussed with the family that this is most likely from gastritis, duodenitis, gastric ulcer, duodenal ulcer or possibly even metastatic lesions inside of the stomach or esophagus that are slowly bleeding on their own. There is no plan for upper endoscopy at this time. The patient is DO NOT RESUSCITATE/DO NOT INTUBATE (DNR/DNI) at home. They would like me to do everything possible at this point while he is in the hospital; however, I said that I would talk to them before anything gets planned. At this point, will treat him empirically with Carafate and Prilosec twice a day as well as give him two units of blood due to the weakness. We will continue to monitor his hemoglobin and hematocrit every 6 hours. If he does not improve over the next 24-48 hours or if he requires more than 4 units of blood, then we will consider to start off with an upper endoscopy to figure out the source of his bleeding.
[2016-10-06] MEDS: ADVAIR HFA 115/21 INHALER INH SCH ×2 (07:19→20:01)
[2016-10-06 08:00] VITALS: BP 108/55
[2016-10-06] MEDS: PANTOPRAZOLE 40MG TAB (PROTONIX) PO SCH ×2 (09:14→22:33)
[2016-10-06] MEDS: FERROUS SULFATE 325MG TAB PO SCH (09:14)
[2016-10-06] MEDS: LIDOCAINE 5% (LIDODERM) PATCH TD SCH (09:14)
[2016-10-06] MEDS: OMEPRAZOLE 20 MG CAP PO SCH (09:15)
[2016-10-06] MEDS: METOPROLOL TART 50 MG TAB PO SCH ×2 (09:15→22:33)
[2016-10-06] MEDS: DIGOXIN 0.125 MG TAB PO SCH (09:15)
[2016-10-06 11:30] VITALS: BP 115/68
[2016-10-06 16:00] VITALS: BP 110/62
[2016-10-06 20:00] VITALS: BP 103/64
[2016-10-06] MEDS: **NOTE PATIENT COMMENT** MISC XX SCH (21:00)
--- NOTE | 2016-10-06 21:39 | IPN ---
DATE: 10/06/2016 SUBJECTIVE: Patient seen and examined in the room today. Patient continues to have black, tarry stool. Patient does not feel his bleeding is decreased. No overnight events reported. OBJECTIVE: VITAL SIGNS: Temperature is 96.8, pulse is 99, respiration rate 18, blood pressure is 108/55, pulse oximetry 97% with 3 liters nasal cannula. GENERAL: Fatigued, pale. No sign of acute distress. Patient is alert and oriented times three. HEENT: Normocephalic, atraumatic. Extraocular motor grossly intact. CARDIOVASCULAR: Irregularly irregular, very distant heart sounds. Positive systolic murmur. RESPIRATORY: No wheezes or rhonchi. Very distant breath sounds. ABDOMEN: Soft, nontender, nondistended. Bowel sounds present. EXTREMITIES: No edema. No cyanosis. LABORATORY DATA: WBC 12.2, hemoglobin is 10.4, hematocrit 33, platelet count is 401. Sodium 141, potassium 3.5, chloride 102, carbon dioxide 33, BUN is 30, creatinine 0.53, GFR greater than 60, fasting glucose 132, calcium 9.7. ASSESSMENT AND PLAN: 1. Gastrointestinal (GI) bleed, most likely upper GI source. The general surgeon, Dr. Foss. It is suspected patient might have a GI bleed from gastritis versus duodenitis versus peptic ulcer disease. Recommend medical management. Continue with Protonix and Carafate. Due to other medical comorbidities, recommend to avoid a procedure unless there is a significant drop in hemoglobin and hematocrit. Patient is advanced to a clear diet. Due to current GI bleed, patient's Eliquis and Plavix are on hold. 2. Stage IV you-[id number]-kvex lung cancer with metastasis to the brain, adrenal gland, and surrounding lymph nodes. Patient had his first session of chemotherapy on 10/03/2016. Patient is followed by Dr. London in the outpatient setting. 3. Symptomatic anemia in the setting of acute GI bleed. Patient had a 2 packed red blood cells transfusion previously. Patient is being evaluated by physical therapy. 4. Hyperlipidemia, on atorvastatin. 5. History of myocardial infarction with stent placement. Patient had allergy to aspirin; therefore, patient was taking Plavix previously during current GI bleed. Plavix will be discontinued. 6. Atrial fibrillation. Continue metoprolol tartrate; heart rate within the satisfactory range. Eliquis was discontinued due to the GI bleed. Patient is also taking digoxin. 7. Hypertension. Patient is returning to satisfactory range. Patient is on metoprolol tartrate. 8. Deep vein thrombosis (DVT) prophylaxis, on thromboembolic deterrents (TEDs), and sequential compression device. No anticoagulation will be given due to the GI bleed.
[2016-10-06] MEDS: ATORVASTATIN 20 MG TAB PO SCH (22:33)
[2016-10-06 23:53] VITALS: BP 97/53
[2016-10-07] MEDS ORDERED: SODIUM CHLORIDE NASAL 0.65% SPRAY BTL (OCEAN) PRN (00:45)
[2016-10-07 04:00] VITALS: BP 103/58
[2016-10-07] MEDS: SUCRALFATE SUSP 1GM/10ML UD PO SCH ×3 (04:20→20:28)
[2016-10-07 06:02] LABS: MEAN CORPUSCULAR HEMOGLOBIN 29.3 pg (27.0-33.0); MEAN CORPUSCULAR HGB CONC 31.6 g/dl (32.0-36.5); MEAN CORPUSCULAR VOLUME 92.5 fl (80.0-96.0); WHITE BLOOD COUNT 8.9 K/mm3 (4.0-10.0)
[2016-10-07 06:22] LABS: ANION GAP 8 MEQ/L (8-16); BLOOD UREA NITROGEN 27 MG/DL (7-18); CALCIUM LEVEL 9.5 MG/DL (8.8-10.2); CARBON DIOXIDE LEVEL 31 MEQ/L (21-32); CHLORIDE LEVEL 104 MEQ/L (98-107); CREATININE FOR GFR 0.48 MG/DL (0.70-1.30); GLOMERULAR FILTRATION RATE > 60.0 (>35); GLUCOSE, FASTING 123 MG/DL (83-110); POTASSIUM SERUM 3.2 MEQ/L (3.5-5.1); SODIUM LEVEL 143 MEQ/L (136-145)
[2016-10-07] MEDS: ADVAIR HFA 115/21 INHALER INH SCH ×2 (07:23→20:51)
[2016-10-07 08:00] VITALS: BP 106/58
--- NOTE | 2016-10-07 08:54 | ECGEPIP ---
Stationary ECG Study [facility] - ED Test Date: 2016-10-05 Pat Name: CHRIS DAVIS Department: Room: - Gender: M Electrical Project Manager: trudy : 1930 Requested By: Kervin Marquez Order Number: [id number] Reading MD: Luiza Jimenez Measurements Intervals [place] Rate: 92 P: [place]: 0 QRS: 20 QRSD: 90 T: -44 QT: 309 QTc: 382 Interpretive Statements ATRIAL FIBRILLATION INFERIOR MYOCARDIAL INFARCTION, OF INDETERMINATE AGE WITH POSTERIOR EXTENSION MODERATE T-WAVE ABNORMALITY, CONSIDER ANTEROLATERAL ISCHEMIA DECREASED RATE 09/01/16 Electronically Signed On 10-07-2016 8:53:41 EST by Luiza Jimenez
[2016-10-07] MEDS ORDERED: POTASSIUM CHLORIDE 10 MEQ SR TABLET PO ONE (09:00)
[2016-10-07] MEDS: OMEPRAZOLE 20 MG CAP PO SCH (09:51)
[2016-10-07] MEDS: PANTOPRAZOLE 40MG TAB (PROTONIX) PO SCH ×2 (09:51→20:29)
[2016-10-07] MEDS: METOPROLOL TART 50 MG TAB PO SCH ×2 (09:51→20:29)
[2016-10-07] MEDS: MEGESTROL 40 MG TAB PO SCH ×3 (09:51→20:29)
[2016-10-07] MEDS: DIGOXIN 0.125 MG TAB PO SCH (09:51)
[2016-10-07] MEDS: FERROUS SULFATE 325MG TAB PO SCH (09:51)
[2016-10-07] MEDS: LIDOCAINE 5% (LIDODERM) PATCH TD SCH (09:53)
[2016-10-07 12:00] VITALS: BP 108/77
[2016-10-07] MEDS ORDERED: DRONABINOL 2.5 MG CAP (MARINOL) PO SCH (12:00)
[2016-10-07] MEDS: NS 1,000 ML IV SCH (15:10)
[2016-10-07 16:00] VITALS: BP 100/56
--- NOTE | 2016-10-07 16:59 | IPN ---
DATE: 10/07/2016 SUBJECTIVE: Patient seen and examined in the room today. Patient continues to have fatigue and unable to tolerate much exertion. The patient also continues to have very poor oral intake. Per patient, the patient has been having minimal oral intake for the past several weeks. The patient has been losing significant weight due to poor oral intake and due to his medical conditions. No overnight events were reported. I had a chance to discuss the patient's current condition and the prognosis with the son and the daughter. They understand the patient's prognosis is poor. They will consider comfort measures only, but they wish to discuss the situation with patient's and the patient. They do not feel that they are ready to place the patient on comfort measures only status. They are going to consider hospice care. OBJECTIVE: VITAL SIGNS: Temperature is 96.6, pulse is 72, respiration rate 18, blood pressure is 106/58, pulse oximetry 97% with 2 liters nasal cannula. GENERAL: Fatigued, pale. No sign of acute distress. Unable to maintain awakeness for a long duration. The patient is oriented. HEENT: Normocephalic, atraumatic. Extraocular motor grossly intact. Dry oral mucosa. CARDIOVASCULAR: Irregularly irregular, very distant heart sounds. Positive systolic murmur. RESPIRATORY: No wheezes or rhonchi. Very distant breath sounds. ABDOMEN: Soft, nontender, nondistended. Bowel sounds present. EXTREMITIES: No edema. No cyanosis. LABORATORY DATA: WBC is 8.9, hemoglobin is 9.8, hematocrit 31.1, platelet count is 323. Sodium is 143, potassium 3.2, chloride is 104, carbon dioxide 31, BUN 27, creatinine 0.48, GFR greater than 60, fasting glucose 123, calcium 9.5. ASSESSMENT AND PLAN: 1. Gastrointestinal bleed, most likely upper GI source. General surgeon, Dr. Foss, has been consulted. The patient is currently on Carafate and Protonix. Hemoglobin and hematocrit have remained relatively stable despite the fact that the patient has been continuing to have black, tarry stools, but the rate of bleed is slow. Continue to monitor the patient. Give a blood transfusion if needed. The patient's Plavix and Eliquis have been on hold due to the GI bleed. I explained to the patient and the patient's son and daughter regarding the risks and benefits of discontinuing the Eliquis and Plavix. The patient stated that he needed some time to evaluate he will like to continue with anticoagulation due to elevated risk for a blood clot. 2. 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 Patient understands his illness is terminal. His prognosis is poor. However, it is unclear whether he is ready for comfort measures only. I updated the patient's current condition with the patient's family members, including his daughter and his son. The healthcare proxy is the patient's daughter, the , and the patient's son-in-law. I encouraged all the family members can have a family meeting during the weekend; however, they will address the comfort measures only when they are ready. 3. Symptomatic anemia in the setting of acute GI bleed. Patient had 2 packed red blood cells transfusion previously. Hemoglobin and hematocrit have been stable. The patient will continue to work with physical therapy (PT). 4. Hyperlipidemia, on atorvastatin. 5. History of myocardial infarction with stent placement. Patient was taking Plavix previously due to the aspirin allergy. Due to the current GI bleed, Plavix has been discontinued. 6. Atrial fibrillation. On metoprolol tartrate; heart rate within satisfactory range. Eliquis is on hold due to active GI bleed. Patient is taking digoxin. 7. Hypertension. On metoprolol. Blood pressure controlled. 8. Deep vein thrombosis (DVT) prophylaxis, on thromboembolic deterrents (TEDs), and sequential compression device.
--- NOTE | 2016-10-07 19:29 | EDDOCDS ---
Nurse's Notes [facility] Name: Robert Horton Age: 86 yrs Sex: Male : 1930 Arrival Date: 10/05/2016 Time: 09:13 Bed 21 Private MD: Diagnosis: Gastrointestinal hemorrhage, unspecified-upper;Anemia, unspecified;Chronic atrial fibrillation;Malignant neoplasm of bronchus and lung;Fall on same level, unspecified Presentation: 10/05 09:16 Presenting complaint: Presenting complaint: EMS states: pt reports his legs were weak dsf when trying to get out of bed this morning and he fell. pt denies LOC. pt has a HX of brain cancer and did receive chemo on Monday, FSBS 187. PT denies pain at this time. 09:19 Suicide/Homicide risk assessment- the patient denies having any suicidal and/or dsf homicidal ideations and does not present with any other emotional, behavioral or mental health complaints. Status: Patient is not a central service supply distributor or dependent. Transition of care: patient was not received from another setting of care. 09:19 Method Of Arrival: Ambulance dsf 09:37 Adult Sepsis Screening: The patient does not have new or worsening altered mentation. dsf Patient's respiratory rate is less than 22. Systolic blood pressure is greater than 100. Patient has a qSOFA score of 0- Negative Sepsis Screen. 09:37 Acuity: JOSE Level 3 dsf Triage Assessment: 09:23 General: Appears ill, Behavior is cooperative. Pain: Denies pain. The patient is dsf triaged at the bedside. See Assessment in Nurses Notes section of ED record. Neurological: Level of Consciousness is awake, alert, Oriented to person, place, time, Reports weakness legs feel weak for the past 1-2 weeks . Cardiovascular: Capillary refill < 3 seconds Heart tones S1 S2 present. Respiratory: Airway is patent Respiratory effort is even, unlabored, Respiratory pattern is regular, symmetrical, Breath sounds are diminished in left upper lobe and left lower lobe Reports shortness of breath since for the past week cough that is productive, since 1 week ago. GI: Abdomen is non- distended Bowel sounds present X 4 quads. Abd is soft and non tender X 4 quads. Derm: Skin is dry, Skin is pale. Musculoskeletal: No deficits noted. Historical: - Allergies: Aspirin (Anaphylaxis); - Home Meds: 1. clonazepam 0.5 mg Oral tab 1 tab 2 times per day (Last dose: 10/04/2016) 2. digoxin 125 mcg Oral tab 1 tab once daily (Last dose: 10/04/2016) 3. Eliquis 5 mg oral tab 1 tab daily (Last dose: 10/04/2016) 4. ondansetron HCl 4 mg Oral tab 4 mg every 6 hours 5. Compazine 10 mg Oral tab 1 tab every 8 hours (Last dose: Unknown) 6. ferrous sulfate 325 mg (65 mg iron) Oral TbEC 325 mg twice a day (Last dose: 10/04/2016) 7. metoprolol tartrate 50 mg Oral tab 2 times per day (Last dose: 10/04/2016) 8. dexamethasone 0.5 mg Oral tab 1 tab once daily (Last dose: 10/04/2016) 9. Ambien 10 mg Oral tab 1 tab nightly (Last dose: 10/04/2016) 10. Plavix 75 mg Oral tab 1 tab once daily (Last dose: 10/04/2016) 11. hydrocodone-acetaminophen 5-325 mg Oral tab 1 tab every 6 hours (Last dose: Unknown) - PMHx: Cancer, Lung - Left; GERD; Hypercholesterolemia; Hypertension; brain cancer; Atrial Fib; - PSHx: Stents, Coronary; - The history from nurses notes was reviewed: and I agree with what is documented. - Social history: Smoking status: Patient states was never smoker of tobacco. No barriers to communication noted, The patient speaks fluent Syriac. - : The pt / caregiver states he / she is on anticoagulants: Eliquis Home medication list is obtained from family members. - Exposure Risk Screening:: None identified. - Immunization history:: All immunizations up-to-date. - Family history: Not pertinent. - Social history:: the patient is a former smoker, the patient does not drink alcohol. Assessment: 09:23 General: see triage assessment . dsf 10:23 Adult Sepsis Screening: The patient does not have new or worsening altered mentation. dsf Patient's respiratory rate is less than 22. Systolic blood pressure is greater than 100. Patient has a qSOFA score of 0- Negative Sepsis Screen. General: Appears in no apparent distress, Behavior is appropriate for age, cooperative. Pain: Denies pain. Neurological: Level of Consciousness is awake, alert. Cardiovascular: Capillary refill < 3 seconds Heart tones S1 S2 present Rhythm is atrial fibrillation with no ectopy. Respiratory: Airway is patent Respiratory effort is even, unlabored, Respiratory pattern is regular, symmetrical, Breath sounds are diminished in left upper lobe and left lower lobe. Derm: Skin is dry, Skin is pale, Skin temperature is warm. 11:23 Adult Sepsis Screening: The patient does not have new or worsening altered mentation. dsf Patient's respiratory rate is less than 22. Systolic blood pressure is greater than 100. Patient has a qSOFA score of 0- Negative Sepsis Screen. General: Appears in no apparent distress, to be sleeping. Respiratory: Airway is patent Respiratory effort is even, unlabored, Respiratory pattern is regular, symmetrical. Derm: Skin is dry, Skin is pale, Skin temperature is warm. 12:34 General: Dr. gorman in examining patient . dsf 13:34 General: Appears in no apparent distress, to be sleeping. Cardiovascular: Capillary dsf refill < 3 seconds Heart tones S1 S2 present Rhythm is atrial fibrillation with no ectopy. Respiratory: Airway is patent Respiratory effort is even, unlabored, Respiratory pattern is regular, symmetrical, Breath sounds are diminished in left upper lobe and left lower lobe. GI: Abdomen is non- distended Bowel sounds present X 4 quads. Abd is soft and non tender X 4 quads. Derm: Skin is dry, Skin is pale, Skin temperature is warm. 13:50 General: Dr. Foss in examining patient . dsf Vital Signs: 09:30 BP 115 / 60 (auto/); dsf 09:35 BP 115 / 60; Pulse 88; Resp 18; Temp 98.3; Pulse Ox 100% on 3 lpm NC; Weight 85.73 kg cmb (R); Height 5 ft. 10 in. (177.80 cm) (R); Pain 0/10; 09:35 Pulse 94 MON; Pulse Ox 100% ; dsf 11:52 BP 105 / 53 (auto/); dsf 11:52 Pulse 90 MON; Pulse Ox 99% ; dsf 12:31 BP 110 / 59; Pulse 109; Resp 18; Temp 98.2; Pulse Ox 98% on 3 lpm NC; Pain 0/10; cmb 09:35 Body Mass Index 27.12 (85.73 kg, 177.80 cm) cmb Vitals: 09:23 Log In Time N/A - ambulance arrival. dsf ED Course: 09:15 Patient visited by Evonne Russ. cmb 09:15 Patient moved to Waiting cmb 09:16 Patient moved to 15 cmb 09:27 Kervin Grewal MD is Attending Physician. pc 09:36 Patient visited by Evonne Russ. cmb 09:36 Pt greeted and oriented to ED. Patient advised of names of staff involved in care, cmb location of call raza, wait times and NPO status. Patient has correct armband on for positive identification. Bed in low position. Call light in reach. Side rails up X2. Cleaned of incontinence. acute specialist on. Pulse ox on. NIBP on. 09:37 Triage Initiated dsf 09:57 Patient visited by Kervin Grewal MD. pc 10:02 Inserted saline lock: 20 gauge in right antecubital area The patient tolerated the dsf procedure well. 10:04 Digoxin Level Sent. dsf 10:04 Type & Screen Sent. dsf 10:04 Pt & Aptt Sent. dsf 10:04 MED Profile Sent. dsf 10:04 CBC with Diff Sent. dsf 10:08 EKG done. (by ED staff). Reviewed by Kervin Grewal MD. nb2 10:15 Patient visited by Mariah Dewey. nb2 11:16 Patient visited by Evonne Russ. cmb 11:54 Type and Cross, Packed Cells Sent. dsf 11:55 Patient visited by Gabby Tamez,MAHOGANY. dsf 12:03 Deann Gorman financial services specialist. ys2 12:10 Patient moved to Radiology dsf 12:31 Patient visited by Evonne Russ. cmb 12:31 Patient moved to 15 cmb 12:32 Patient visited by Evonne Russ. cmb 12:59 Blood products: PRBCs X 1 unit given. See transfusion record Unit # [id number]. jc4 13:10 Deann Gorman is Hospitalizing Provider. pc 13:21 Shoulder, Complete Returned. EDMS 13:52 Patient visited by Gabby Tamez,MAHOGANY. dsf 14:10 Patient moved to 21 dsf 14:18 [facility] Payment Agreement was scanned into [employer] and attached to record. mm15 14:18 Hip,AP,LAT to include Pelvis Returned. EDMS 14:18 Chest, 1 View Returned. EDMS 14:19 Patient visited by Evonne Russ. cmb 10/06 10:02 ECG/EKG was scanned into [employer] and attached to record. gb Administered Medications: 10/05 11:53 Drug: NS 0.9% 500 ml [sodium chloride 0.9 % injection solution] Route: IV; Rate: bolus; dsf Site: right antecubital; Order Results: Lab Order: CBC with Diff; SPEC'M 10/05/16 09:43 Test: WHITE BLOOD COUNT; Value: 12.0; Range: 4.0-10.0; Abnormal: Above high normal; Units: K/mm3; Status: F Test: RED BLOOD COUNT; Value: 3.35; Range: 4.30-6.10; Abnormal: Below low normal; Units: M/mm3; Status: F Test: HEMOGLOBIN; Value: 9.6; Range: 14.0-18.0; Abnormal: Below low normal; Units: g/dl; Status: F Test: HEMATOCRIT; Value: 30.8; Range: 42.0-52.0; Abnormal: Below low normal; Units: %; Status: F Test: MEAN CORPUSCULAR VOLUME; Value: 92.0; Range: 80.0-96.0; Units: fl; Status: F Test: MEAN CORPUSCULAR HEMOGLOBIN; Value: 28.7; Range: 27.0-33.0; Units: pg; Status: F Test: MEAN CORPUSCULAR HGB CONC; Value: 31.2; Range: 32.0-36.5; Abnormal: Below low normal; Units: g/dl; Status: F Test: RED CELL DISTRIBUTION WIDTH; Value: 16.2; Range: 11.5-14.5; Abnormal: Above high normal; Units: %; Status: F Test: PLATELET COUNT, AUTOMATED; Value: 494; Range: 150-450; Abnormal: Above high normal; Units: k/mm3; Status: F Test: NEUTROPHILS %; Value: 90.8; Range: 36.0-66.0; Abnormal: Above high normal; Units: %; Status: F Test: LYMPH %; Value: 6.6; Range: 24.0-44.0; Abnormal: Below low normal; Units: %; Status: F Test: MONO %; Value: 1.3; Range: 0.0-5.0; Units: %; Status: F Test: EOS %; Value: 0.6; Range: 0.0-3.0; Units: %; Status: F Test: BASO %; Value: 0.2; Range: 0.0-1.0; Units: %; Status: F Test: LARGE UNSTAINED CELL %; Value: 0.4; Range: 0.0-4.0; Units: %; Status: F Test: NEUTROPHILS #; Value: 10.9; Range: 1.8-7.7; Abnormal: Above high normal; Units: K/mm3; Status: F Test: LYMPH #; Value: 0.8; Range: 1.5-4.5; Abnormal: Below low normal; Units: K/mm3; Status: F Test: MONO #; Value: 0.2; Range: 0.0-0.8; Units: K/mm3; Status: F Test: EOS #; Value: 0.1; Range: 0.0-0.50; Units: K/mm3; Status: F Test: BASO #; Value: 0.0; Range: 0.0-0.2; Units: K/mm3; Status: F Test: LARGE UNSTAINED CELL #; Value: 0.1; Range: 0.0-0.4; Units: K/mm3; Status: F Lab Order: [facility]; [facility] 10/05/16 09:43 Test: GLUCOSE, FASTING; Value: 148; Range: 83-110; Abnormal: Above high normal; Units: MG/DL; Status: F Test: BLOOD UREA NITROGEN; Value: 35; Range: 7-18; Abnormal: Above high normal; Units: MG/DL; Status: F Test: CREATININE FOR GFR; Value: 0.76; Range: 0.70-1.30; Units: MG/DL; Status: F Test: GLOMERULAR FILTRATION RATE; Value: > 60.0; Range: >35; Status: F Test: SODIUM LEVEL; Value: 140; Range: 136-145; Units: MEQ/L; Status: F Test: POTASSIUM SERUM; Value: 3.8; Range: 3.5-5.1; Units: MEQ/L; Status: F Test: CHLORIDE LEVEL; Value: 100; Range: 98-107; Units: MEQ/L; Status: F Test: CARBON DIOXIDE LEVEL; Value: 34; Range: 21-32; Abnormal: Above high normal; Units: MEQ/L; Status: F Test: ANION GAP; Value: 6; Range: 8-16; Abnormal: Below low normal; Units: MEQ/L; Status: F Test: CALCIUM LEVEL; Value: 10.8; Range: 8.8-10.2; Abnormal: Above high normal; Units: MG/DL; Status: F Test Note: ; Units are mL/min/1.73 m2 Chronic Kidney Disease Staging per NKF: Stage I & II GFR >=60 Normal to Mildly Decreased Stage III GFR 30-59 Moderately Decreased Stage IV GFR 15-29 Severely Decreased Stage V GFR <15 Very Little GFR Left ESRD GFR <15 on MUSCULOSKELETAL PHYSICIAN Lab Order: Pt & Aptt; 10/05/16 09:43 Test: PROTHROMBIN TIME; Value: 15.5; Range: 12.3-14.5; Abnormal: Above high normal; Units: SECONDS; Status: F Test: INR; Value: 1.22; Status: F Test: PARTIAL THROMBOPLASTIN TIME; Value: 31.5; Range: 26.6-37.1; Units: SECONDS; Status: F Test Note: ; THERAPUTIC HUMAN INR VALUES INDICATIONS NORMAL RANGES PROPHYLAXIS/TREATMENT OF: VENOUS THROMBOSIS 2.0-3.0 PULMONARY EMBOLISM 2.0-3.0 PREVENTION OF SYSTEMIC EMBOLISM FROM: TISSUE HEART VALVES 2.0-3.0 ACUTE MYOCARDIAL INFARCTION 2.0-3.0 VALVULAR HEART DISEASE 2.0-3.0 ATRIAL FIBRILLATION 2.0-3.0 MECHANICAL VALVES(HIGH RISK) 2.5-3.5 RECURRENT MYOCARDIAL INFARCTION 2.5-3.5 Lab Order: Type & Screen; 10/05/16 09:43 Test: BLOOD TYPE; Value: O POS; Status: F Test: AB SCREEN (INDIRECT ANTHONY)GEL; Value: NEGATIVE; Status: F Lab Order: Digoxin Level; 10/05/16 09:43 Test: DIGOXIN LEVEL; Value: 0.7; Range: 0.5-2.0; Units: NG/ML; Status: F Radiology Order: Chest, 1 View Test: Chest, 1 View REASON FOR EXAMINATION: Cough; AP SUPINE CHEST: 10/05/2016; ; COMPARISON: Two-view chest 08/31/2016, CT angiogram chest 09/01/2016.; ; CLINICAL HISTORY: Cough.; ; Supine chest shows lungs hypoinflated compared to the previous study with; crowding of markings opacity suggesting complete consolidation and/or mass; involving the left upper lobe. I do not see definite haziness to suggest; layering effusion but smaller effusions could certainly be present. There is; left atrial enlargement with elevation of the left mainstem bronchus. Heart size; difficult to electric razor mechanic in supine AP technique. Some underlying fibrosis is noted in; both lungs. The airway is midline. Visualized bones grossly intact. No rita; edema.; ; IMPRESSION:; ; 1. Opacity over the left upper lung zone representing consolidation and/or; atelectasis and mass within this is certainly possible.; ; 2. Left atrial enlargement. Overall heart size difficult to electric razor mechanic.; ; 3. Some underlying fibrosis. No rita edema.; ; ; Signed by; Isma Canada MD 10/05/2016 04:45 P; Radiology Order: Shoulder, Complete Test: Shoulder, Complete REASON FOR EXAMINATION: Trauma; ; LEFT SHOULDER:; ; Three view of the left shoulder are performed. There is no acute fracture or; dislocation. There is linear calcification along the superolateral humeral head; which appears to represent tendinous calcification with possible calcific; tendonitis.; ; IMPRESSION:; No acute fracture or dislocation. Possible calcific tendonitis.; ; ; ; Unreviewed; Radiology Order: Hip,AP,LAT to include Pelvis Test: Hip,AP,LAT to include Pelvis REASON FOR EXAMINATION: Trauma; ; PELVIS AND LEFT HIP:; ; AP view of the pelvis and AP and frog-leg views of the left hip are performed.; There is no evidence of acute fracture or dislocation. There are degenerative; changes of the lower lumbar spine. Diffuse vascular calcifications are present.; ; ; IMPRESSION:; No evidence of acute fracture or dislocation.; ; ; ; Unreviewed; Outcome: 13:11 Decision to Hospitalize by Provider. 14:10 Admission hand-off: Report called to Mira VIDES. dsf 18:28 Patient left the ED. dsf Signatures: Dispatcher [employer] EDKervin Pressley MD MD pc Barnhardt, Halina, Saroj Reg gb Jesica Contreras RN RN [id number] Gabby Tamez RN RN dsf Evonne Russ cmb Jim Manjarrez mm15 Graciezaki Deann ys2 Mariah Dewey nb2 Corrections: (The following items were deleted from the chart) 09:21 09:16 Presenting complaint: dsf dsf 09:28 09:16 Presenting complaint: EMS states: pt reports his legs were weak when trying to dsf get out of bed this morning and he fell. pt denies LOC. pt has a HX of brain cancer and did receive chemo on Monday, FSBS 187. PT denies pain at this time Presenting complaint: EMS states: pt reports his legs were weak when trying to get out of bed this morning and he fell. pt denies LOC. pt has a HX of brain cancer and did receive chemo on Monday, FSBS 187. PT denies pain at this time dsf 13:52 10:23 Cardiovascular: Capillary refill < 3 seconds dsf dsf 13:52 10:23 Respiratory: Airway is patent Respiratory effort is even, unlabored, Respiratory dsf pattern is regular, symmetrical, dsf Chart Complete MTDD
--- NOTE | 2016-10-07 19:29 | EDDOCDS ---
Physician Documentation [facility] Name: Robert Horton Age: 86 yrs Sex: Male : 1930 Arrival Date: 10/05/2016 Time: 09:13 Bed 21 Private MD: Disposition: 10/05 11:52 Critical Care:. pc Disposition: 10/05/16 13:11 Hospitalization ordered by Deann Goramn for Inpatient Admission. Preliminary diagnosis are Gastrointestinal hemorrhage, unspecified - upper, Anemia, unspecified, Chronic atrial fibrillation, Malignant neoplasm of bronchus and lung, Fall on same level, unspecified. - Bed requested for PCU. - Status is Inpatient Admission. dsf - Condition is Stable. - Problem is new. - Symptoms have improved. HPI: 10:10 This 86 yrs old Male presents to ER via Ambulance with complaints of General pc Weakness. 10:10 The history is obtained from the patient, the patient's family/friend. He has been pc getting progressively weak for 4 weeks, worse since his first chemotherapy 2 days ago. His legs gave out this morning while trying to get to the bathroom to urinate and fell to the floor. He did not sustain any injuries. He was recently admitted to [facility] for new onset AFib and was started on Eliquis. His EMR shows his hemoglobin dropped from 12.5 to 8.5 over the 11 day admission. His BUN was 25 on admission and was 12 on discharge. The patient has not experienced similar symptoms in the past. The patient has been recently seen by Dr. London. Historical: - Allergies: Aspirin (Anaphylaxis); - Home Meds: 1. clonazepam 0.5 mg Oral tab 1 tab 2 times per day (Last dose: 10/04/2016) 2. digoxin 125 mcg Oral tab 1 tab once daily (Last dose: 10/04/2016) 3. Eliquis 5 mg oral tab 1 tab daily (Last dose: 10/04/2016) 4. ondansetron HCl 4 mg Oral tab 4 mg every 6 hours 5. Compazine 10 mg Oral tab 1 tab every 8 hours (Last dose: Unknown) 6. ferrous sulfate 325 mg (65 mg iron) Oral TbEC 325 mg twice a day (Last dose: 10/04/2016) 7. metoprolol tartrate 50 mg Oral tab 2 times per day (Last dose: 10/04/2016) 8. dexamethasone 0.5 mg Oral tab 1 tab once daily (Last dose: 10/04/2016) 9. Ambien 10 mg Oral tab 1 tab nightly (Last dose: 10/04/2016) 10. Plavix 75 mg Oral tab 1 tab once daily (Last dose: 10/04/2016) 11. hydrocodone-acetaminophen 5-325 mg Oral tab 1 tab every 6 hours (Last dose: Unknown) - PMHx: Cancer, Lung - Left; GERD; Hypercholesterolemia; Hypertension; brain cancer; Atrial Fib; - PSHx: Stents, Coronary; - The history from nurses notes was reviewed: and I agree with what is documented. - Social history: Smoking status: Patient states was never smoker of tobacco. No barriers to communication noted, The patient speaks fluent Mongolian. - : The pt / caregiver states he / she is on anticoagulants: Eliquis Home medication list is obtained from family members. - Exposure Risk Screening:: None identified. - Immunization history:: All immunizations up-to-date. - Family history: Not pertinent. - Social history:: the patient is a former smoker, the patient does not drink alcohol. ROS: 10:10 All systems are negative except as listed. pc Exam: 10:10 General Appearance: no acute distress, alert. pc 10:10 EENT: ears, nose and throat normal, pharynx normal, mucous membranes moist no apparent trauma, pale conjunctiva. 10:10 Neck: The exam reveals no acute abnormalities. ROM is normal and painless. No nuchal rigidity is noted.. 10:10 Respiratory: no respiratory distress, Breath sounds: rhonchi, in the right posterior middle lobe. 10:10 CVS: regular pulse rate, normal S1 and S2, no murmurs, strong peripheral pulses, irregularly irregular 10:10 Abdomen: soft, non-tender, no organomegaly, normal bowel sounds, Rectal exam: stool is guaiac positive, fecal impaction is noted. 10:10 Back: normal inspection. 10:10 Skin: warm, dry, the skin appears pale, diffusely. 10:10 Extremities: The extremities have a grossly normal appearance, are non-tender. 10:10 Neuro: oriented x 3, cranial nerves normal as tested, no motor deficits, no sensory deficits. 10:10 Psych: normal mood. Vital Signs: 09:30 BP 115 / 60 (auto/); dsf 09:35 BP 115 / 60; Pulse 88; Resp 18; Temp 98.3; Pulse Ox 100% on 3 lpm NC; Weight 85.73 kg / cmb 189 lbs (R); Height 5 ft. 10 in. (177.80 cm) (R); Pain 0/10; 09:35 Pulse 94 MON; Pulse Ox 100% ; dsf 11:52 BP 105 / 53 (auto/); dsf 11:52 Pulse 90 MON; Pulse Ox 99% ; dsf 12:31 BP 110 / 59; Pulse 109; Resp 18; Temp 98.2; Pulse Ox 98% on 3 lpm NC; Pain 0/10; cmb 09:35 Body Mass Index 27.12 (85.73 kg, 177.80 cm) cmb MDM: 10:01 IV Saline Lock ordered. pc 10:01 Educational Assistant Teacher/Pulse Ox/q 30 min VS ordered. pc 10:02 Type & Screen Ordered. EDMS 10:02 ECG WITH READING ER PHYS+CARDIAG ordered. EDMS 10:02 CBC with Diff Ordered. EDMS 10:02 MED Profile Ordered. EDMS 10:02 Pt & Aptt Ordered. EDMS 10:02 Digoxin Level Ordered. EDMS 10:03 NOTHING BY MOUTH+DIET ordered. EDMS 10:10 Differential Diagnosis: fall without injury; general weakness with profound anemia; UGI pc bleed on anticoagulants; lung Ca. Plan: labs, EKG. 10:15 Test interpretation: EKG. pc 10:49 CBC with Diff Reviewed. pc 10:49 MED Profile Reviewed. pc 10:49 Pt & Aptt Reviewed. pc 10:49 Type & Screen Reviewed. pc 10:49 Digoxin Level Reviewed. pc 11:21 Type & Screen Reviewed. pc 11:37 BED REQUEST+ADM ordered. EDMS 11:50 NS 0.9% 500 ml IV at bolus once ordered. pc 11:51 Transfuse PRBC's 2 units, ensure PRBCs ordered in lab ordered. pc 11:52 Data reviewed: old medical records, vital signs, nurses notes, EKG(s), lab test pc results, all radiology studies and available results. Test interpretation: LAB - all labs as ordered have been reviewed, interpreted and considered in the overall management of the clinical presentation;. The patient has been re-examined and re-evaluated. The patient's symptoms have mildly improved after treatment. ED course: He is now complaining of left shoulder and hip[ pain from his fall. Exam is unremarkable . 11:52 Physician consultation: Dr. Deann Gorman regarding admission. Disposition: The historical pc points, examination findings, and any diagnostic results supporting the provided diagnosis, were discussed with the patient or legal guardian. The need for further work-up and/or treatment in the hospital was explained. 11:53 Chest, 1 View Ordered. EDMS 11:53 Shoulder, Complete Ordered. EDMS 11:53 Type and Cross, Packed Cells Ordered. EDMS 11:54 Hip,AP,LAT to include Pelvis Ordered. EDMS 12:30 Admission / Observation Status ordered. EDMS 12:30 NPO DIET ordered. EDMS 13:08 Financial registration complete. mm15 14:18 [facility] Payment Agreement was scanned into [employer] and attached to record. mm15 15:05 HEMOGLOBIN & HEMATOCRIT Ordered. EDMS 02 10:02 ECG/EKG was scanned into [employer] and attached to record. EC 10:15 Rate is 94 beats/min. Rhythm is irregularly irregular, A fib. QRS [place] is Normal. QRS pc interval is normal. QT interval is normal. Q waves are Old in leads III, aVF. T waves are Inverted in lead aVF. ST Segment is depressed in leads II, aVL, aVF, V3, <1mm. Clinical impression: Nonspecific ST-T changes, Atrial Fibrillation w/o RVR, and Inferior GA - age indeterminate. Administered Medications: 11:53 Drug: NS 0.9% 500 ml [sodium chloride 0.9 % injection solution] Route: IV; Rate: bolus; dsf Site: right antecubital; Critical Care Time: 11:52 Critical care time: Bedside Care: 35 minutes, Consultation: 10 minutes, Family pc Intervention: 15 minutes. Total time: 60 minutes Signatures: Dispatcher [employer] EDDC Kervin Grewal MD MD pc Barnhardt, Gloria, Gabby Tirado RN RN dsf Jim Manjarrez mm15 Yang De La Garza RN RN mts The chart was reviewed and I authenticate all verbal orders and agree with the evaluation and treatment provided.Corrections: (The following items were deleted from the chart) 12:07 11:53 TYPE & SCREEN ordered. EDMS EDMS 16:01 15:35 PACKED CELLS ordered. EDMS EDMS 16:01 15:35 TYPE & SCREEN ordered. EDMS EDMS Attachments: 14:18 [facility] Payment Agreement mm15 10/06 10:02 ECG/EKG gb Chart Complete MTDD
--- NOTE | 2016-10-07 19:29 | EDDOCDS ---
Physician Documentation [facility] Name: Robert Horton Age: 86 yrs Sex: Male : 1930 Arrival Date: 10/05/2016 Time: 09:13 Bed 21 Private MD: Disposition: 10/05 11:52 Critical Care:. pc Disposition: 10/05/16 13:11 Hospitalization ordered by Deann Gorman for Inpatient Admission. Preliminary diagnosis are Gastrointestinal hemorrhage, unspecified - upper, Anemia, unspecified, Chronic atrial fibrillation, Malignant neoplasm of bronchus and lung, Fall on same level, unspecified. - Bed requested for PCU. - Status is Inpatient Admission. dsf - Condition is Stable. - Problem is new. - Symptoms have improved. HPI: 10:10 This 86 yrs old Male presents to ER via Ambulance with complaints of General pc Weakness. 10:10 The history is obtained from the patient, the patient's family/friend. He has been pc getting progressively weak for 4 weeks, worse since his first chemotherapy 2 days ago. His legs gave out this morning while trying to get to the bathroom to urinate and fell to the floor. He did not sustain any injuries. He was recently admitted to [facility] for new onset AFib and was started on Eliquis. His EMR shows his hemoglobin dropped from 12.5 to 8.5 over the 11 day admission. His BUN was 25 on admission and was 12 on discharge. The patient has not experienced similar symptoms in the past. The patient has been recently seen by Dr. London. Historical: - Allergies: Aspirin (Anaphylaxis); - Home Meds: 1. clonazepam 0.5 mg Oral tab 1 tab 2 times per day (Last dose: 10/04/2016) 2. digoxin 125 mcg Oral tab 1 tab once daily (Last dose: 10/04/2016) 3. Eliquis 5 mg oral tab 1 tab daily (Last dose: 10/04/2016) 4. ondansetron HCl 4 mg Oral tab 4 mg every 6 hours 5. Compazine 10 mg Oral tab 1 tab every 8 hours (Last dose: Unknown) 6. ferrous sulfate 325 mg (65 mg iron) Oral TbEC 325 mg twice a day (Last dose: 10/04/2016) 7. metoprolol tartrate 50 mg Oral tab 2 times per day (Last dose: 10/04/2016) 8. dexamethasone 0.5 mg Oral tab 1 tab once daily (Last dose: 10/04/2016) 9. Ambien 10 mg Oral tab 1 tab nightly (Last dose: 10/04/2016) 10. Plavix 75 mg Oral tab 1 tab once daily (Last dose: 10/04/2016) 11. hydrocodone-acetaminophen 5-325 mg Oral tab 1 tab every 6 hours (Last dose: Unknown) - PMHx: Cancer, Lung - Left; GERD; Hypercholesterolemia; Hypertension; brain cancer; Atrial Fib; - PSHx: Stents, Coronary; - The history from nurses notes was reviewed: and I agree with what is documented. - Social history: Smoking status: Patient states was never smoker of tobacco. No barriers to communication noted, The patient speaks fluent Hebrew. - : The pt / caregiver states he / she is on anticoagulants: Eliquis Home medication list is obtained from family members. - Exposure Risk Screening:: None identified. - Immunization history:: All immunizations up-to-date. - Family history: Not pertinent. - Social history:: the patient is a former smoker, the patient does not drink alcohol. ROS: 10:10 All systems are negative except as listed. pc Exam: 10:10 General Appearance: no acute distress, alert. pc 10:10 EENT: ears, nose and throat normal, pharynx normal, mucous membranes moist no apparent trauma, pale conjunctiva. 10:10 Neck: The exam reveals no acute abnormalities. ROM is normal and painless. No nuchal rigidity is noted.. 10:10 Respiratory: no respiratory distress, Breath sounds: rhonchi, in the right posterior middle lobe. 10:10 CVS: regular pulse rate, normal S1 and S2, no murmurs, strong peripheral pulses, irregularly irregular 10:10 Abdomen: soft, non-tender, no organomegaly, normal bowel sounds, Rectal exam: stool is guaiac positive, fecal impaction is noted. 10:10 Back: normal inspection. 10:10 Skin: warm, dry, the skin appears pale, diffusely. 10:10 Extremities: The extremities have a grossly normal appearance, are non-tender. 10:10 Neuro: oriented x 3, cranial nerves normal as tested, no motor deficits, no sensory deficits. 10:10 Psych: normal mood. Vital Signs: 09:30 BP 115 / 60 (auto/); dsf 09:35 BP 115 / 60; Pulse 88; Resp 18; Temp 98.3; Pulse Ox 100% on 3 lpm NC; Weight 85.73 kg / cmb 189 lbs (R); Height 5 ft. 10 in. (177.80 cm) (R); Pain 0/10; 09:35 Pulse 94 MON; Pulse Ox 100% ; dsf 11:52 BP 105 / 53 (auto/); dsf 11:52 Pulse 90 MON; Pulse Ox 99% ; dsf 12:31 BP 110 / 59; Pulse 109; Resp 18; Temp 98.2; Pulse Ox 98% on 3 lpm NC; Pain 0/10; cmb 09:35 Body Mass Index 27.12 (85.73 kg, 177.80 cm) cmb MDM: 10:01 IV Saline Lock ordered. pc 10:01 President Celebrity Acquistion/Pulse Ox/q 30 min VS ordered. pc 10:02 Type & Screen Ordered. EDMS 10:02 ECG WITH READING ER PHYS+CARDIAG ordered. EDMS 10:02 CBC with Diff Ordered. EDMS 10:02 MED Profile Ordered. EDMS 10:02 Pt & Aptt Ordered. EDMS 10:02 Digoxin Level Ordered. EDMS 10:03 NOTHING BY MOUTH+DIET ordered. EDMS 10:10 Differential Diagnosis: fall without injury; general weakness with profound anemia; UGI pc bleed on anticoagulants; lung Ca. Plan: labs, EKG. 10:15 Test interpretation: EKG. pc 10:49 CBC with Diff Reviewed. pc 10:49 MED Profile Reviewed. pc 10:49 Pt & Aptt Reviewed. pc 10:49 Type & Screen Reviewed. pc 10:49 Digoxin Level Reviewed. pc 11:21 Type & Screen Reviewed. pc 11:37 BED REQUEST+ADM ordered. EDMS 11:50 NS 0.9% 500 ml IV at bolus once ordered. pc 11:51 Transfuse PRBC's 2 units, ensure PRBCs ordered in lab ordered. pc 11:52 Data reviewed: old medical records, vital signs, nurses notes, EKG(s), lab test pc results, all radiology studies and available results. Test interpretation: LAB - all labs as ordered have been reviewed, interpreted and considered in the overall management of the clinical presentation;. The patient has been re-examined and re-evaluated. The patient's symptoms have mildly improved after treatment. ED course: He is now complaining of left shoulder and hip[ pain from his fall. Exam is unremarkable . 11:52 Physician consultation: Dr. Deann Gorman regarding admission. Disposition: The historical pc points, examination findings, and any diagnostic results supporting the provided diagnosis, were discussed with the patient or legal guardian. The need for further work-up and/or treatment in the hospital was explained. 11:53 Chest, 1 View Ordered. EDMS 11:53 Shoulder, Complete Ordered. EDMS 11:53 Type and Cross, Packed Cells Ordered. EDMS 11:54 Hip,AP,LAT to include Pelvis Ordered. EDMS 12:30 Admission / Observation Status ordered. EDMS 12:30 NPO DIET ordered. EDMS 13:08 Financial registration complete. mm15 14:18 [facility] Payment Agreement was scanned into [employer] and attached to record. mm15 15:05 HEMOGLOBIN & HEMATOCRIT Ordered. EDMS 02 10:02 ECG/EKG was scanned into [employer] and attached to record. EC 10:15 Rate is 94 beats/min. Rhythm is irregularly irregular, A fib. QRS [place] is Normal. QRS pc interval is normal. QT interval is normal. Q waves are Old in leads III, aVF. T waves are Inverted in lead aVF. ST Segment is depressed in leads II, aVL, aVF, V3, <1mm. Clinical impression: Nonspecific ST-T changes, Atrial Fibrillation w/o RVR, and Inferior NV - age indeterminate. Administered Medications: 11:53 Drug: NS 0.9% 500 ml [sodium chloride 0.9 % injection solution] Route: IV; Rate: bolus; dsf Site: right antecubital; Critical Care Time: 11:52 Critical care time: Bedside Care: 35 minutes, Consultation: 10 minutes, Family pc Intervention: 15 minutes. Total time: 60 minutes Signatures: Dispatcher [employer] EDFL Kervin Grewal MD MD pc Barnhardt, Gloria, Gabby Tirado RN RN dsf Jim Manjarrez mm15 Yang De La Garza RN RN mts The chart was reviewed and I authenticate all verbal orders and agree with the evaluation and treatment provided.Corrections: (The following items were deleted from the chart) 12:07 11:53 TYPE & SCREEN ordered. EDMS EDMS 16:01 15:35 PACKED CELLS ordered. EDMS EDMS 16:01 15:35 TYPE & SCREEN ordered. EDMS EDMS Attachments: 14:18 [facility] Payment Agreement mm15 10/06 10:02 ECG/EKG gb Chart Complete MTDD
[2016-10-07 19:58] VITALS: BP 106/56
[2016-10-07] MEDS: **NOTE PATIENT COMMENT** MISC XX SCH (20:05)
[2016-10-07] MEDS: ATORVASTATIN 20 MG TAB PO SCH (20:29)
[2016-10-07] MEDS: clonazePAM 0.5 MG TAB PO PRN (20:29)
[2016-10-07 23:37] VITALS: BP 110/58
[2016-10-08] MEDS: zolPIDEM TARTRATE 10MG TAB PO PRN (02:19)
[2016-10-08 04:44] VITALS: BP 107/64
[2016-10-08] MEDS: SUCRALFATE SUSP 1GM/10ML UD PO SCH ×3 (05:06→20:19)
[2016-10-08] MEDS: NS 1,000 ML IV SCH ×2 (05:06→17:08)
[2016-10-08 05:55] LABS: MEAN CORPUSCULAR HEMOGLOBIN 29.3 pg (27.0-33.0); MEAN CORPUSCULAR VOLUME 94.3 fl (80.0-96.0); RED CELL DISTRIBUTION WIDTH 15.8 % (11.5-14.5); WHITE BLOOD COUNT 4.7 K/mm3 (4.0-10.0)
[2016-10-08 06:13] LABS: ANION GAP 7 MEQ/L (8-16); BLOOD UREA NITROGEN 22 MG/DL (7-18); CALCIUM LEVEL 8.8 MG/DL (8.8-10.2); CARBON DIOXIDE LEVEL 32 MEQ/L (21-32); CHLORIDE LEVEL 103 MEQ/L (98-107); CREATININE FOR GFR 0.38 MG/DL (0.70-1.30); GLOMERULAR FILTRATION RATE > 60.0 (>35); GLUCOSE, FASTING 106 MG/DL (83-110); POTASSIUM SERUM 3.2 MEQ/L (3.5-5.1); SODIUM LEVEL 142 MEQ/L (136-145)
[2016-10-08] MEDS: ADVAIR HFA 115/21 INHALER INH SCH ×2 (07:24→19:46)
[2016-10-08 08:00] VITALS: BP 108/55
[2016-10-08] MEDS ORDERED: POTASSIUM CHLORIDE 10 MEQ SR TABLET PO ONE (08:00)
[2016-10-08] MEDS: DIGOXIN 0.125 MG TAB PO SCH (08:47)
[2016-10-08] MEDS: FERROUS SULFATE 325MG TAB PO SCH (08:47)
[2016-10-08] MEDS: PANTOPRAZOLE 40MG TAB (PROTONIX) PO SCH ×2 (08:47→20:18)
[2016-10-08] MEDS: OMEPRAZOLE 20 MG CAP PO SCH (08:47)
[2016-10-08] MEDS: MEGESTROL 40 MG TAB PO SCH ×3 (08:47→20:18)
[2016-10-08] MEDS: LIDOCAINE 5% (LIDODERM) PATCH TD SCH (08:48)
[2016-10-08] MEDS: METOPROLOL TART 50 MG TAB PO SCH ×2 (08:48→20:18)
[2016-10-08 11:33] VITALS: BP 102/54
[2016-10-08 16:55] VITALS: BP 119/77
--- NOTE | 2016-10-08 19:39 | IPN ---
DATE: 10/08/2016 SUBJECTIVE: Patient is seen and examined in the room in the morning. Patient continues to have very poor oral intake, the patient can only tolerate some juice for dinner. The patient stated that he just does not feel hungry and the food tastes very bad. Later, I had a chance to hold a family meeting with the patient's daughter, son and the patient's and the patient's family friends. Everyone has been discussing with the patient regarding to his wishes. Currently, they are leaning toward making the patient comfortable. The would like more information from hospice, and they are hoping to get hospice services at home, and they stated that they will consider updating the Medical Orders for Life Sustaining Treatment (MOLST) form to comfort measures only tomorrow or Monday. Per patient, the patient continues to have black stool. No abdominal pain. OBJECTIVE: VITAL SIGNS: Temperature is 96.9, pulse is 97, respiration rate 20, blood pressure is 108/55, pulse oximetry is 100% with 2 liters nasal cannula. GENERAL: Fatigued. Has difficulty maintaining alertness or awakeness for a long duration. Alert and oriented times three. HEENT: Normocephalic, atraumatic. Extraocular motor grossly intact. Dry oral mucosa. CARDIOVASCULAR: Irregularly irregular, very distant heart sounds. Positive systolic murmur. RESPIRATORY: Intermittent cough with yellowish sputum, which is chronic. No wheezes. Distant breath sounds. ABDOMEN: Soft, nontender, nondistended. Bowel sounds present. No rebound or guarding. EXTREMITIES: No edema. No cyanosis. LABORATORY DATA: WBC is 4.7, hemoglobin is 9.4, hematocrit 30.3, platelet count is 256. Sodium is 142, potassium 3.2, chloride is 103, carbon dioxide 32, BUN 22, creatinine 0.38, GFR greater than 60, fasting glucose 106, calcium is 8.8. ASSESSMENT AND PLAN: 1. Gastrointestinal bleed, most likely secondary to upper GI source. Anticoagulation, such as Plavix and Eliquis have been discontinued; however, the patient continues to have dark stool. Hemoglobin and hematocrit have been stable. No need for blood transfusion at this moment. 2. 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 Currently, the patient has been discussed with family members and family friends. Right now, they are leaning toward home hospice care and the comfort measures only form will be signed tomorrow or on Monday when they are ready. The patient was transferred from progressive care unit (PCU) to medical/surgical floor. Unfortunately, there is no weekend hospice service available. We will try to contact hospice care on Monday. 3. Symptomatic anemia in the setting of acute GI bleed. We will continue watching hemoglobin and hematocrit. 4. Severe protein caloric malnutrition. The patient continues to have very poor oral intake. I started a trial of Megace; however, the patient does not respond to the medication. The patient has very minimal oral intake. The patient is currently maintained on intravenous fluid. 5. History of myocardial infarction status post stent placement. Anticoagulation has been on hold due to gastrointestinal bleed. 6. Atrial fibrillation. On metoprolol tartrate. Eliquis is on hold due to gastrointestinal bleed. The patient is on digoxin. 7. Hypertension. On metoprolol. 8. Deep vein thrombosis (DVT) prophylaxis, on thromboembolic deterrents (TEDs), and sequential compression device.
[2016-10-08] MEDS: ATORVASTATIN 20 MG TAB PO SCH (20:18)
[2016-10-08] MEDS: **NOTE PATIENT COMMENT** MISC XX SCH (20:19)
[2016-10-08 22:00] VITALS: BP 115/59
[2016-10-09] MEDS: NS 1,000 ML IV SCH ×2 (04:11→15:24)
[2016-10-09] MEDS: SUCRALFATE SUSP 1GM/10ML UD PO SCH ×3 (04:11→20:06)
[2016-10-09 06:00] VITALS: BP 105/59
[2016-10-09 06:38] LABS: MEAN CORPUSCULAR HEMOGLOBIN 28.9 pg (27.0-33.0); MEAN CORPUSCULAR HGB CONC 31.4 g/dl (32.0-36.5); MEAN CORPUSCULAR VOLUME 92.1 fl (80.0-96.0); RED CELL DISTRIBUTION WIDTH 16.3 % (11.5-14.5); WHITE BLOOD COUNT 3.3 K/mm3 (4.0-10.0)
[2016-10-09 06:47] LABS: ANION GAP 8 MEQ/L (8-16); BLOOD UREA NITROGEN 18 MG/DL (7-18); CALCIUM LEVEL 8.4 MG/DL (8.8-10.2); CARBON DIOXIDE LEVEL 31 MEQ/L (21-32); CHLORIDE LEVEL 102 MEQ/L (98-107); CREATININE FOR GFR 0.36 MG/DL (0.70-1.30); GLOMERULAR FILTRATION RATE > 60.0 (>35); GLUCOSE, FASTING 106 MG/DL (83-110); POTASSIUM SERUM 3.2 MEQ/L (3.5-5.1); SODIUM LEVEL 141 MEQ/L (136-145)
[2016-10-09] MEDS: ADVAIR HFA 115/21 INHALER INH SCH ×2 (07:30→23:01)
[2016-10-09] MEDS: MEGESTROL 40 MG TAB PO SCH ×3 (08:43→20:06)
[2016-10-09] MEDS: DIGOXIN 0.125 MG TAB PO SCH (08:43)
[2016-10-09] MEDS: METOPROLOL TART 50 MG TAB PO SCH ×2 (08:44→20:06)
[2016-10-09] MEDS: FERROUS SULFATE 325MG TAB PO SCH (08:44)
[2016-10-09] MEDS: PANTOPRAZOLE 40MG TAB (PROTONIX) PO SCH ×2 (08:44→20:06)
[2016-10-09] MEDS: NORCO, ANEXSIA 5/325MG TABLET (HYDROcodone/ACETAMINOPHEN) PO PRN (08:44)
[2016-10-09] MEDS: OMEPRAZOLE 20 MG CAP PO SCH (08:44)
[2016-10-09] MEDS: LIDOCAINE 5% (LIDODERM) PATCH TD SCH (08:45)
[2016-10-09 14:00] VITALS: BP 132/77
--- NOTE | 2016-10-09 18:05 | IPN ---
DATE: 10/09/2016 SUBJECTIVE: The patient is seen and examined in the room today. The patient continues to have a very poor appetite. He has minimal oral intake. The patient continues to have black tarry stool. The patient stated he understands what was discussed and during the family meeting yesterday, he wanted to go home and he is not against home hospice option. OBJECTIVE: VITAL SIGNS: Temperature is 96.8, pulse is 99, respirations 18, blood pressure 105/59, pulse oximetry 97% on three liters nasal cannula. GENERAL: Pale, fatigued, no sign of acute distress. Alert and oriented times three. HEENT: Normocephalic, atraumatic. Extraocular motor grossly intact. Dry oral mucosa. CARDIOVASCULAR: Irregularly irregular. Distant heart sounds. Positive systolic murmur. RESPIRATORY: Intermittent cough. No wheezes. Diminished breath sounds. Coarse lung sounds. ABDOMEN: Soft, nontender, nondistended. Bowel sounds present. No rebound, no guarding. EXTREMITIES: No edema, no cyanosis. LABORATORY DATA: WBC 3.3, hemoglobin 8.7, hematocrit is 27.8, platelet count 178. Sodium 141, potassium 3.2, chloride 102, carbon dioxide 31, BUN 18, creatinine 0.36, GFR greater than 60, fasting glucose of 106, calcium 8.4. ASSESSMENT AND PLAN: 1. Stage IV [id number] lung cancer of the left lung with metastasis to the brain, adrenal glands, surrounding lymph nodes. The patient continues to have very poor oral intake, and patient's fluid is maintained through the intravenous (IV) normal saline running at 80 mL per hour. Megace has not improved the patient's appetite. I will try to update the comfort measures only (MILLING PLANER OPERATOR) status, and I am planning to consult hospice service tomorrow to arrange the family meeting. The patient desires home hospice care. 2. Upper gastrointestinal (GI) bleed. The patient's anticoagulation has been discontinued, including Eliquis and Plavix. The patient continues to have dark tarry stool. The patient's hemoglobin and hematocrit continue to drop slowly. It could be due to hemodilution and due to a small bleed. Currently hemoglobin 8.7, hematocrit 27.8. General surgeon, Dr. Foss, is consulted. Patient determined to be a poor candidate for any procedure. Recommend medical management. 3. Severe protein caloric malnutrition. The patient continues to have poor oral intake despite a trial of Megace. The patient is currently on IV fluids. 4. Atrial fibrillation on metoprolol tartrate. Eliquis on hold due to GI bleed. The patient is not on digoxin. 5. Hypertension on metoprolol. 6. Deep venous thrombosis (DVT) prophylaxis, on thromboembolism deterrent stockings (TEDs) and sequential compression devices.
[2016-10-09] MEDS: zolPIDEM TARTRATE 10MG TAB PO PRN (20:06)
[2016-10-09] MEDS: ATORVASTATIN 20 MG TAB PO SCH (20:06)
[2016-10-09] MEDS: **NOTE PATIENT COMMENT** MISC XX SCH (20:07)
[2016-10-09 22:00] VITALS: BP 133/72
[2016-10-10] MEDS: clonazePAM 0.5 MG TAB PO PRN (01:20)
[2016-10-10] MEDS: NORCO, ANEXSIA 5/325MG TABLET (HYDROcodone/ACETAMINOPHEN) PO PRN (01:22)
[2016-10-10] MEDS: SUCRALFATE SUSP 1GM/10ML UD PO SCH ×2 (03:28→11:53)
[2016-10-10] MEDS: NS 1,000 ML IV SCH ×2 (03:28→15:42)
[2016-10-10 06:00] VITALS: BP 131/69
[2016-10-10 06:50] LABS: MEAN CORPUSCULAR HEMOGLOBIN 29.1 pg (27.0-33.0); MEAN CORPUSCULAR HGB CONC 31.6 g/dl (32.0-36.5); MEAN CORPUSCULAR VOLUME 91.9 fl (80.0-96.0); RED CELL DISTRIBUTION WIDTH 15.9 % (11.5-14.5); WHITE BLOOD COUNT 3.8 K/mm3 (4.0-10.0)
[2016-10-10 07:08] LABS: ANION GAP 8 MEQ/L (8-16); BLOOD UREA NITROGEN 12 MG/DL (7-18); CALCIUM LEVEL 8.3 MG/DL (8.8-10.2); CARBON DIOXIDE LEVEL 32 MEQ/L (21-32); CHLORIDE LEVEL 102 MEQ/L (98-107); CREATININE FOR GFR 0.37 MG/DL (0.70-1.30); GLOMERULAR FILTRATION RATE > 60.0 (>35); GLUCOSE, FASTING 90 MG/DL (83-110); SODIUM LEVEL 142 MEQ/L (136-145)
[2016-10-10] MEDS: ADVAIR HFA 115/21 INHALER INH SCH (08:22)
[2016-10-10 08:53] VITALS: BP 131/69
[2016-10-10] MEDS: LIDOCAINE 5% (LIDODERM) PATCH TD SCH (08:53)
[2016-10-10] MEDS: FERROUS SULFATE 325MG TAB PO SCH (08:53)
[2016-10-10] MEDS: PANTOPRAZOLE 40MG TAB (PROTONIX) PO SCH (08:53)
[2016-10-10] MEDS: METOPROLOL TART 50 MG TAB PO SCH (08:53)
[2016-10-10] MEDS: DIGOXIN 0.125 MG TAB PO SCH (08:53)
[2016-10-10] MEDS: MEGESTROL 40 MG TAB PO SCH ×3 (08:53→19:17)
[2016-10-10] MEDS: OMEPRAZOLE 20 MG CAP PO SCH (08:53)
[2016-10-10] MEDS ORDERED: SCOPOLAMINE 1.5 MG TRANSDERMAL TD PRN (13:30)
[2016-10-10] MEDS ORDERED: FLEET ENEMA PR PRN (13:30)
--- NOTE | 2016-10-10 19:08 | IPN ---
DATE: 10/10/2015 SUBJECTIVE: The patient is seen and examined in the room today. The patient continues to have poor oral intake. The patient continues to have tarry black stool. Today I had a chance to update the Medical Orders for Life-Sustaining Treatment (MOLST) form with the patient and the patient's proxy, his daughter and the son. They both agree to pursue home hospice care. Orders changed to comfort measures only (LEATHER CARVER). At the time being, the patient wanted to continue with intravenous (IV) fluid and continue trial of Megace. No overnight events were reported. OBJECTIVE: VITAL SIGNS: Temperature 96.7, pulse is 98, respirations 16, blood pressure 131/69, pulse oximetry 98% on room air. GENERAL: Fatigued, pale. No sign of acute distress. Alert and oriented times three. HEENT: Normocephalic, atraumatic. Extraocular motor grossly intact. CARDIOVASCULAR: Irregularly irregular. Distant heart sounds. Positive systolic murmur. RESPIRATORY: No wheezes. Diminished breath sounds. Coarse lung sounds. ABDOMEN: Soft, nontender, nondistended. Bowel sounds present. No rebound, no guarding. EXTREMITIES: No edema, no cyanosis. LABORATORY DATA: WBC 3.8, hemoglobin 8.9, hematocrit 28.1, platelet count is 114. Sodium 142, potassium 3, chloride 102, carbon dioxide 32, BUN 12, creatinine 0.37, GFR greater than 60, fasting glucose 90, calcium 8.3. ASSESSMENT AND PLAN: 1. 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 2. Upper gastrointestinal (GI) bleed. 3. Severe protein calorie malnutrition. 4. Atrial fibrillation. 5. Hypertension. PLAN: The patient's status is updated to LEATHER CARVER. The patient will have family meeting. Patient and patient's proxy and possible family friend will have a meeting with hospice to discuss the details for home hospice care. Social service has been very helpful with arranging the meeting and discharge planning. Currently, the patient's is suffering from acute upper respiratory viral infection. They are concerned if the patient goes home, the patient's condition will deteriorate more rapidly than is anticipated. They continue to set up a safe disposition at this moment.
[2016-10-10] MEDS: LORazepam 1 MG TAB PO PRN (19:17)
[2016-10-10] MEDS: zolPIDEM TARTRATE 10MG TAB PO PRN (20:14)
[2016-10-10] MEDS: MORPHINE 10MG/0.5ML ORAL CONCENTRATE SOLUTION U/D SL PRN (20:14)
[2016-10-11] MEDS: NS 1,000 ML IV SCH (02:46)
--- NOTE | 2016-10-11 07:18 | IPN ---
DATE: 10/11/2016 Patient seen and examined at the bedside. Chart has been reviewed. This morning, patient states that he has no discomfort. He is requesting to be repositioned in bed and for black coffee. He otherwise denies any chest pain, pressure or tightness, shortness of breath, dizziness, lightheadedness, nausea or vomiting. VITALS: Temperature 96.7, pulse 98, respiratory 20, blood pressure 131/69, respiratory rate 16, 98% on 3 liters nasal cannula. Generally, patient is awake, alert, oriented to person, answering questions appropriately. No respiratory distress. HEENT: Normocephalic, atraumatic. Extraocular muscles intact. Nasal cannula noted. No use of respiratory accessory muscles. Heart: S1, S2, irregularly irregular. Systolic ejection murmur at the apex radiating to the carotids. Lungs: Diminished with coarse rhonchi. Abdomen: Soft, nontender, nondistended. Positive bowel sounds. Extremities: No cyanosis, clubbing or pitting edema. 10/10/2016 laboratory data has been reviewed. ASSESSMENT AND PLAN: 86-year-old DO NOT RESUSCITATE, DO NOT INTUBATE, hospice, comfort measures only patient with stage IV non-small cell lung cancer of left lung with mets to the brain, adrenals and surrounding lymph nodes, presented with upper gastrointestinal (GI) bleed, anticoagulation for atrial fibrillation has been discontinued due to active bleeding. Patient has decided on comfort measures only, and hospice is being consulted, awaiting Patient Family Services (PFS) meeting with the family as the patient is unable to be cared for a home as his has acute upper respiratory viral infection. Patient is DO NOT RESUSCITATE, DO NOT INTUBATE. He has decided on no medical intervention. Currently comfort measures only. Stable for discharge at any time with hospice. [facility]
[2016-10-11] MEDS: MEGESTROL 40 MG TAB PO SCH ×3 (08:31→19:47)
[2016-10-11] MEDS: MORPHINE 10MG/0.5ML ORAL CONCENTRATE SOLUTION U/D SL PRN ×3 (13:13→23:09)
[2016-10-11] MEDS: zolPIDEM TARTRATE 10MG TAB PO PRN (19:47)
[2016-10-11] MEDS: LORazepam 1 MG TAB PO PRN (23:09)
[2016-10-12] MEDS: MORPHINE 10MG/0.5ML ORAL CONCENTRATE SOLUTION U/D SL PRN (00:42)
[2016-10-12] MEDS ORDERED: LORA1TAB12 PO (06:44)
[2016-10-12] MEDS ORDERED: MORP1SOL PO (06:44)
[2016-10-12] MEDS ORDERED: ATRO1OPD PO (06:44)
--- NOTE | 2016-10-12 08:41 | IPN ---
DATE: 10/12/2016 Patient continues to be DO NOT RESUSCITATE, DO NOT INTUBATE, comfort measures only. He is seen and examined at the bedside today. He has no new complaints. Says "I am okay". Denies any chest pain, pressure, tightness, shortness of breath, palpitations, lightheadedness, nausea, vomiting, diarrhea. Vitals: Temperature 96.7, pulse 98, respiratory 20, blood pressure 131/69, 98% on 3 liters nasal cannula. Generally, patient is awake, alert, oriented to person and place. Answering questions appropriately. No respiratory distress. Use of respiratory accessory muscles. No jugular venous distention. Extraocular muscles intact. Nasal cannula 2 liters of oxygen. Normocephalic, atraumatic. Heart: S1, S2. Irregularly irregular. Systolic ejection murmur at the apex. Lungs: Diminished breath sounds, course rhonchi bilaterally. Abdomen: Soft, nontender, nondistended. Positive bowel sounds. Extremities: No cyanosis, clubbing or pitting edema. ASSESSMENT AND PLAN: This is an 86-year-old DO NOT RESUSCITATE, DO NOT INTUBATE , comfort measures only patient with stage IV non-small cell cancer of the left lung with mets to the brain, adrenals, surrounding lymph nodes, presented with upper gastrointestinal (GI) bleed. Anticoagulation for atrial fibrillation was discontinued due to active bleeding. Patient decided on comfort measures only and hospice has been consulted. Patient has been unable to be discharged as his is sick at home, unable to care for him. Has decided no further medical intervention. Is currently comfort measures only. Is stable for discharge any time home with hospice. DO NOT RESUSCITATE, DO NOT INTUBATE. [facility]
[2016-10-12] MEDS: MEGESTROL 40 MG TAB PO SCH (09:16)
--- NOTE | 2016-10-26 11:35 | DSES ---
DATE OF ADMISSION: 10/05/2016 DATE OF DISCHARGE: 10/12/2016 CONSULTANTS: General surgeon, Dr. Danie Foss. PRIMARY DISCHARGE DIAGNOSES: 1. Stage IV non small cell lung cancer of the left lung with metastases to the brain, adrenal glands, surrounding lymph nodes. 2. Upper gastrointestinal bleed. 3. Acute blood loss anemia requiring 2 units of red blood cell transfusion. 4. Symptomatic anemia in the setting of acute gastrointestinal bleed. 5. Hyperlipidemia. 6. History of coronary artery disease, myocardial infarction with stent placement. 7. History of atrial fibrillation on chronic Eliquis, held due to active GI bleed. 8. Hypertension. The patient was discharged comfort measures only, DO NOT RESUSCITATE, DO NOT INTUBATE with hospice care. DISCHARGE MEDICATIONS: - atropine sulfate one to two drops by mouth every two hours as needed for terminal secretions - Lorazepam 0.5 mg every 4 hours as needed for anxiety and agitation - Roxanol 0.25 to 1 mL by mouth every 2 hours as needed for dyspnea or pain HOSPITALIZATION COURSE: This is an 86-year-old male with a history of stage IV metastatic lung cancer to the brain, adrenal glands, surrounding lymph nodes, who presented to the emergency room with complaints of symptomatic anemia, found to have most likely acute upper gastrointestinal bleed. His Eliquis was discontinued. Dr. Danie Foss, general surgery, was consulted. He was placed on Carafate and Protonix. He was having black, tarry stools. He was given 2 units of red blood cell transfusion with hemoglobin increasing from 9.[address] Danie Foss was consulted for evaluation of patient's acute gastrointestinal bleed. Differential most likely included gastritis, duodenitis , gastric ulcer and duodenal ulcer, possibly even metastatic lesions inside the stomach or esophagus that may be slow bleeding, no plan for upper endoscopy. The patient was DO NOT RESUSCITATE, DO NOT INTUBATE. The patient was empirically treated with Carafate and Prilosec twice a day. THe patient's family and the patient opted for comfort measures only with no further endoscopic evaluation of the patient's bleed. His hemoglobin decreased from peak of 10.4 to hemoglobin of 8.9. He had episodes of low electrolytes with low potassium, which was treated with potassium supplementation. The patient was made comfort measures, DO NOT RESUSCITATE, DO NOT INTUBATE and was discharged home with hospice. LABORATORIES ON DISCHARGE: White count 3.8, hemoglobin 8.9, hematocrit 28, platelet count 114. Sodium 142, potassium 3, chloride 102, bicarbonate 32, BUN 12, creatinine 0.37, glucose of 90, digoxin level 0.7. Microbiology: None. IMAGING STUDIES: Shoulder x-ray on 10/05/2016 showed possible calcific tendonitis. No acute fracture or dislocation. Hip/pelvis x-ray with no evidence of acute fracture or dislocation. Chest x-ray from 10/05/2016 showed opacity of the left upper lung zone with presenting consolidation, atelectasis or mass within this is certainly possible. 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 Some underlying fibrosis with no rita edema. Time spent on discharge: 30 minutes. [facility]D
== END 2016-10-12 11:35 | disposition hospice, home (50) | DRG 377 ==
LOC: M ED 09:13 → MERGE 12:25 → M ED INP 12:25 → M PCU 17:56 → M MS5PR 10-08 16:51
PROVIDERS: ADMIT Internal Medicine; ATTEND General Practice
PROC: 30233N1 Transfusion of Nonautologous Red Blood Cells into Peripheral Vein, Percutaneous Approach (ICD-10-PCS; principal; 2016-10-05)
DX: K92.2 Gastrointestinal hemorrhage, unspecified (principal); E43 Unspecified severe protein-calorie malnutrition; D62 Acute posthemorrhagic anemia; C34.92 Malignant neoplasm of unspecified part of left bronchus or lung; C79.71 Secondary malignant neoplasm of right adrenal gland; C79.31 Secondary malignant neoplasm of brain; C79.72 Secondary malignant neoplasm of left adrenal gland; C77.9 Secondary and unspecified malignant neoplasm of lymph node, unspecified; Z66 Do not resuscitate; Z51.5 Encounter for palliative care; E78.5 Hyperlipidemia, unspecified; I10 Essential (primary) hypertension; I48.91 Unspecified atrial fibrillation; Z79.01 Long term (current) use of anticoagulants; I25.10 Atherosclerotic heart disease of native coronary artery without angina pectoris; I25.2 Old myocardial infarction; Z79.899 Other long term (current) drug therapy; K21.9 Gastro-esophageal reflux disease without esophagitis; Z88.8 Allergy status to other drugs, medicaments and biological substances; M19.90 Unspecified osteoarthritis, unspecified site